=== PATIENT | female | born 1940 | race Caucasian/White ===

== ENCOUNTER 2017-11-28 12:44 | Inpatient (IN) | payer OTHER ==
[~2017-11-28] VITALS: Ht 162.6 cm; Wt 77.1 kg
[~2017-11-28 12:44] MED LIST: ADVAIR 100-501 EACH IH; CARAFATE1 GM PO; CEFTIN PO; CEFUROXIME250 MG PO; FAMOTIDINE20 MG PO; FLAGYL500 MG PO; KEFLEX500 MG PO; LEVAQUIN500 MG PO; LISINOPRIL40 MG PO; NORVASC10 MG PO; PLAVIX75 MG PO; PROMETHAZINE HC25 M1 PO; REGLAN10 MG PO; TYLENOL WITH C1 EACH PO; XARELTO10 MG PO
[2017-11-28] MEDS ORDERED: SODIUM CHLORIDE 0.9% 500ML 500 ML IV STA (13:09)
[2017-11-28 13:58] LABS: BASOPHILS # (AUTO) 0.1 (0.0-0.1); BASOPHILS % 0.4 % (0.0-1.0); BILIRUBIN,URINE NEGATIVE (NEGATIVE); CLARITY,URINE CLEAR (CLEAR); COLOR,URINE YELLOW (YELLOW); EOSINOPHILS # (AUTO) 0.2 (0.0-0.4); EOSINOPHILS % 1.4 % (0.0-6.0); HEMATOCRIT 40.3 % (34.2-44.1); HEMOGLOBIN 12.8 g/dL (12.0-16.0); KETONES,URINE NEGATIVE (NEGATIVE); LEUKOCYTE ESTERASE ,URINE NEGATIVE (NEGATIVE); LYMPHOCYTES # (AUTO) 2.8 (1.0-3.2); LYMPHOCYTES % 20.6 % (18.0-39.1); MEAN CORPUSCULAR HEMOGLOBIN 29.2 pg (28-32); MEAN CORPUSCULAR HGB CONC 31.8 g/dL (31-35); MEAN CORPUSCULAR VOLUME 91.8 fL (81-99); MONOCYTES # (AUTO) 1.1 (0.2-0.8); MONOCYTES % 7.8 % (4.4-11.3); NEUTROPHILS # (AUTO) 9.5 (2.1-6.9); NEUTROPHILS % 69.4 % (38.7-80.0); NITRITE,URINE NEGATIVE (NEGATIVE); PLATELET COUNT 548 x10e3/uL (140-360); PROTEIN,URINE DIPSTICK NEGATIVE (NEGATIVE); RED BLOOD COUNT 4.39 x10e6/uL (3.6-5.1); RED CELL DISTRIBUTION WIDTH 13.2 % (11.7-14.4); URINE UROBILINOGEN 0.2 mg/dL (0.2 - 1)
[2017-11-28 14:09] LABS: INR 0.81; PROTHROMBIN TIME 11.6 seconds (11.9-14.5)
[2017-11-28 14:10] LABS: PARTIAL THROMBOPLASTIN TIME 32.1 seconds (23.8-35.5)
[2017-11-28 14:19] LABS: ALANINE AMINOTRANSFERASE 19 IU/L (0-55); ALBUMIN 3.4 g/dL (3.5-5.0); ALBUMIN/GLOBULIN RATIO 0.7 (0.8-2.0); ALKALINE PHOSPHATASE 172 IU/L (40-150); ANION GAP 17.1 mmol/L (8-16); BLOOD UREA NITROGEN 19 mg/dL (7-26); BUN/CREATININE RATIO 22 (6-25); CALCIUM 9.1 mg/dL (8.4-10.2); CARBON DIOXIDE 26 mmol/L (22-29); CHLORIDE 100 mmol/L (98-107); CREATINE KINASE 72 IU/L (29-168); CREATININE, SERUM 0.86 mg/dL (0.57-1.11); EST GLOMERULAR FILTRATION RATE > 60 ML/MIN (60-); GLUCOSE 109 mg/dL (74-118); LIPASE 18 U/L (8-78); MAGNESIUM 2.2 MG/DL (1.3-2.1); POTASSIUM 4.1 mmol/L (3.5-5.1); SODIUM 139 mmol/L (136-145)
[2017-11-28 14:25] LABS: TROPONIN I 0.009 ng/mL (0-0.300)
[2017-11-28] MEDS ORDERED: ONDANSETRON HCL INJ 2 MG/ML VIAL IV STA (14:26)
[2017-11-28] MEDS ORDERED: MORPHINE SULFATE 4 MG/ML SYR IV STA (14:26)
[2017-11-28] MEDS ORDERED: MORPHINE SULFATE 5 MG/ML VIAL IV ONE (14:30)
[2017-11-28] MEDS ORDERED: ONDANSETRON HCL INJ 2 MG/ML VIAL IV PRN (15:45)
[2017-11-28] MEDS ORDERED: SODIUM CHLORIDE FLUSH 10 ML SYR INJ PRN (15:45)
--- NOTE | 2017-11-28 16:47 | Diagnostic Imaging Report ---
PROCEDURE: CT scan of the chest WITH intravenous contrast, using pulmonary angiogram protocol. TECHNIQUE: The chest was scanned utilizing a multidetector helical scanner from the lung apex through the level of the adrenal glands after the IV administration of 62cc of Isovue 370. Coronal and sagittal multiplanar reformations were obtained. Pulmonary angiogram protocol was performed. COMPARISON: None. INDICATIONS: SHORTNESS OF BREATH, CHEST TIGHTNESS. History of left TKA FINDINGS: Lines/tubes: None. Lungs and Airways: No pulmonary emboli. Bronchial wall thickening in both lower lobes. Platelet atelectasis in the left lower lobe. Dependent atelectasis in both lower lobes. Pleura: The pleural spaces are clear. Heart and mediastinum: The thyroid gland is normal. No significant mediastinal, hilar or axillary lymphadenopathy is seen. The heart and pericardium are within normal limits. Main pulmonary artery measures 2.6 cm. Ascending aorta measures 3.2 cm. Soft tissues: Normal. Abdomen: Gallbladder is distended measuring 5.3 x 8.9 cm. Common bile duct is distended up to 1.6 cm. Distal common bile duct is not included on this exam. Multiple hypodensities in the liver. 1.8 cm in segment 7/8 (series 2 image 84). Bones: The visualized bony thorax is within normal limits. IMPRESSION: 1. No pulmonary emboli. 2. Bilateral lobe bronchial wall thickening and atelectasis, left greater than right. This may represent superimposed infection, especially aspiration. 3. Gallbladder hydrops with distended common bile duct. Common bile duct stone or pancreatic head mass cannot be excluded. Recommend CT abdomen pelvis and/or MR abdomen without and with contrast pancreas mass protocol for further evaluation. Dictated by: Dax Blevins M.D. on 11/28/2017 at 16:56 Electronically approved by: Dax Blevins M.D. on 11/28/2017 at 16:56
[2017-11-28] MEDS ORDERED: HYDROCODONE/APAP 5MG-325MG TAB PO PRN (17:00)
--- NOTE | 2017-11-28 17:20 | Diagnostic Imaging Report ---
PROCEDURE: A single AP view of the chest. COMPARISON: Chest x-ray 09/15/2017. INDICATIONS: TIGHTNESS IN CHEST FINDINGS: Lines/tubes: None. Lungs: The lungs are well inflated. Left basilar atelectasis. Lungs are otherwise clear.. There is no evidence of pneumonia or pulmonary edema. Pleura: There is no pleural effusion or pneumothorax. Heart and mediastinum: The heart and the mediastinum are unremarkable. Bones: No acute bony abnormality. IMPRESSION: Left basilar atelectasis. Lungs are otherwise clear. Dictated by: Dax Blevins M.D. on 11/28/2017 at 17:29 Electronically approved by: Dax Blevins M.D. on 11/28/2017 at 17:29
[2017-11-28] MEDS: LEVOFLOXACIN 750MG/D5W 150ML 150 ML IV SCH ×2 (17:45→23:58)
[2017-11-28] MEDS ORDERED: SODIUM CHLORIDE 0.9% 50ML 50 ML ONE (18:24)
[2017-11-28] MEDS ORDERED: IOPAMIDOL 370 MG/ML 200 ML INFUS..BTL INJ ONE (18:24)
[2017-11-28 20:30] VITALS: BP 140/60
[2017-11-28 20:58] VITALS: BP 140/60
[2017-11-28] MEDS: MORPHINE SULFATE 5 MG/ML VIAL IV PRN (22:04)
[2017-11-28 22:26] LABS: CREATINE KINASE MB 1.1 ng/mL (0.00-5.00); TROPONIN I 0.008 ng/mL (0-0.300)
[2017-11-28] MEDS ORDERED: areds PO (23:39)
[2017-11-28] MEDS ORDERED: OXYCODONE-ACET1 EAC1 PO (23:39)
[2017-11-28] MEDS ORDERED: MONTELUKAST SOD10 MG PO (23:39)
[2017-11-28] MEDS ORDERED: HYDROCHLOROTHIA25 MG PO (23:39)
[2017-11-29] VITALS (9 sets, daily range): BP systolic 122–140; BP diastolic 56–88
[2017-11-29] MEDS ORDERED: ALBUTEROL/IPRATROPIUM 3 ML NEB NEB ONE (01:15)
[2017-11-29] MEDS ORDERED: ALBUTEROL/IPRATROPIUM 3 ML NEB NEB PRN (01:15)
[2017-11-29] MEDS ORDERED: OXYCODONE/ACETAMINOPHEN 5-325 1 EACH TABLET PO PRN (03:00)
[2017-11-29] MEDS: MORPHINE SULFATE 5 MG/ML VIAL IV PRN ×3 (05:28→21:57)
[2017-11-29 06:32] LABS: BASOPHILS % 0.2 % (0.0-1.0); EOSINOPHILS # (AUTO) 0.2 (0.0-0.4); EOSINOPHILS % 1.8 % (0.0-6.0); HEMATOCRIT 34.3 % (34.2-44.1); HEMOGLOBIN 10.9 g/dL (12.0-16.0); LYMPHOCYTES # (AUTO) 2.1 (1.0-3.2); LYMPHOCYTES % 17.5 % (18.0-39.1); MEAN CORPUSCULAR HEMOGLOBIN 29.5 pg (28-32); MEAN CORPUSCULAR HGB CONC 31.8 g/dL (31-35); MONOCYTES # (AUTO) 1.1 (0.2-0.8); MONOCYTES % 8.8 % (4.4-11.3); NEUTROPHILS # (AUTO) 8.7 (2.1-6.9); NEUTROPHILS % 71.3 % (38.7-80.0); PLATELET COUNT 509 x10e3/uL (140-360); RED BLOOD COUNT 3.69 x10e6/uL (3.6-5.1); RED CELL DISTRIBUTION WIDTH 13.2 % (11.7-14.4)
[2017-11-29 07:03] LABS: ALBUMIN 2.6 g/dL (3.5-5.0); ALBUMIN/GLOBULIN RATIO 0.7 (0.8-2.0); CALCIUM 8.9 mg/dL (8.4-10.2); CREATININE, SERUM 0.92 mg/dL (0.57-1.11)
[2017-11-29] MEDS ORDERED: FAMOTIDINE 20 MG TAB PO SCH (07:30)
[2017-11-29 07:53] LABS: CREATINE KINASE MB 0.7 ng/mL (0.00-5.00); TROPONIN I 0.01 ng/mL (0-0.300)
[2017-11-29] MEDS: HOME MEDICATION--PATIENTS OWN PO SCH ×2 (08:00→16:16)
[2017-11-29] MEDS ORDERED: AREDS PO SCH (08:00)
[2017-11-29] MEDS ORDERED: HYDROCHLOROTHIAZIDE 25 MG TAB PO SCH (09:00)
[2017-11-29] MEDS ORDERED: CLOPIDOGREL BISULFATE 75 MG TAB PO SCH (09:00)
[2017-11-29] MEDS ORDERED: AMLODIPINE BESYLATE 10 MG TAB PO SCH (09:00)
--- NOTE | 2017-11-29 09:46 | History and Physical ---
CHIEF COMPLAINT: Chest pain, increasing shortness of breath, nausea, vomiting, right-sided chest and midepigastric pain as well. HISTORY: Patient is a 77-year-old female recently had her left knee replacement approximately 2-3 weeks ago. Patient came in complaining of increasing shortness of breath, chest pain, more atypical. The patient at baseline takes blood pressure medication and also pain medication for her postoperative care. Patient came in and the patient had multiple imaging done. She had a chest CT done yesterday afternoon showing bilateral lower bronchial wall thickening and atelectasis with left greater than the right. This may represent superimposed infection. There is no pulmonary embolism. The patient also has gallbladder hydrops with distended common bile duct, common bile duct stone of pancreatic head may not be excluded. Recommend CT of the abdomen and pelvis or MRI of the abdomen. The patient, however, does want to do an MRI at this time. PAST MEDICAL HISTORY: Recent left knee replacement, hypertension, chronic obstructive pulmonary disease, history of asthma, osteoarthritis, reflux. PAST SURGICAL HISTORY: Left knee surgery, knee prosthesis. SOCIAL HISTORY: Patient does not smoke or use alcohol. No regular drugs. ALLERGIES: ASPIRIN AND TRAMADOL. HOME MEDICATIONS: Norvasc, Plavix, Pepcid, Advair, hydrochlorothiazide, Singulair, oxycodone. REVIEW OF SYSTEMS: As mentioned above. Epigastric pain, nausea. No vomiting now. Increasing shortness of breath. PHYSICAL EXAMINATION VITAL SIGNS: Temperature is 97, blood pressure 140/63, pulse rate 93, respirations 22. GENERAL: The patient is not in acute distress. HEENT: Normocephalic and atraumatic. Pupils reactive and anicteric. NECK: Supple grossly. No gross JVD. PULMONARY: Bilateral diminished breath sounds at the bases with coarses. CARDIOVASCULAR: S1 and S2. Regular rate and rhythm. ABDOMEN: Soft. Positive bowel sounds. Tenderness in the right upper and midepigastric area. No rebound or guarding. EXTREMITIES: No gross cyanosis or edema. Post left knee replacement. NEUROLOGIC: No focal deficit. LABORATORY: Sodium is 139, potassium 4.1, chloride 100, bicarb 26, BUN 19, creatinine 0.8, glucose 109. WBC is 13.6, hemoglobin 12.8, hematocrit 40.3, and platelets is 548,000. IMAGING: The chest CT showed possible aspiration pneumonia and gallbladder hydrops with distended common bile duct. IMPRESSION 1. Gallbladder hydrops with distended common bile duct: Etiology could be including acute cholecystitis with atypical pain. 2. Possible aspiration pneumonia. 3. Chest pain. PLAN: The patient was seen by Dr. Novoa. May need stress test. The patient may need gallbladder surgery. In the meantime, however, will continue with treatment for her pneumonia with antibiotics. Once the patient is stable, she may need gallbladder surgery. Will put a consult with Dr. Vinayak Feliz for the possible gallbladder surgery, and also consultation with Dr. Delvin Romero for possible ERCP. Will continue to treat this patient at this time. Job#: [id number] BILL
[2017-11-29] MEDS: FAMOTIDINE 20 MG/2 ML VIAL IV SCH ×2 (10:30→16:16)
[2017-11-29] MEDS: SODIUM CHLORIDE 0.45% 1,000 ML IV SCH ×2 (10:30→21:57)
[2017-11-29] MEDS: PIPER-TAZ 3.375 GM 50 ML IV SCH ×4 (10:40→21:56)
--- NOTE | 2017-11-29 11:50 | Consultation ---
DATE OF CONSULTATION: November 28, 2017 REASON FOR CONSULTATION: Chest pain. CONSULTING PHYSICIAN: Dr. Diego Pradhan. HPI: This is a 77-year-old female that presented with chest tightness. According to the patient, yesterday she started having chest tightness at the center of her chest accompanied with shortness of breath that comes and go, that she decided to come into the ER for evaluation. She described the chest pain as a heavy tightness on a scale of 5/10 with no radiation. She has a history of asthma, hypertension, and DVT in the past. She denies any palpitation, any diaphoresis, any headache, any nausea or vomiting. Troponin was negative times 2. EKG showed normal sinus rhythm with no ST abnormalities. PAST MEDICAL HISTORY: Osteoarthritis, asthma, peripheral neuropathy, peptic ulcer disease, DVT in 2008, and stroke. SURGICAL HISTORY: Total knee replacement. FAMILY HISTORY: Positive for hypertension. SOCIAL HISTORY: No smoking, no drinking. MEDICATIONS: See med list. ALLERGIES: SHE IS ALLERGIC TO TRAMADOL AND ASPIRIN. REVIEW OF SYSTEMS: Negative except those mentioned above. PHYSICAL EXAMINATION VITAL SIGNS: Temperature 97, heart rate 86, blood pressure 133/88, respirations 16, and oxygen saturation 99% on 2 liters nasal cannula. GENERAL: She is alert, awake, and oriented times 3. HEENT: Mucous membrane moist. NECK: Supple. LUNGS: Bilaterally clear to auscultation. CARDIOVASCULAR: S1, S2 present. ABDOMEN: Soft. NEUROLOGIC: Intact. EXTREMITIES: With no edema. LABORATORY DATA: Sodium 139, potassium 4.0, chloride 100, CO2 of 30, BUN 15, creatinine 0.92, and glucose 97. White blood cell 12.1, hemoglobin 10.9, hematocrit 34.3, platelet 509. PT 11.6, PTT 32.1, and INR 0.81. IMPRESSION 1. Chest pain. 2. Hypertension. 3. History of deep venous thrombosis. 4. History of cerebrovascular accident. ASSESSMENT AND PLAN: Due to the chest tightness, we will go ahead and get a Lexiscan Myoview to rule out any occlusion. We will get serial cardiac enzyme. We will get an echo to asses LV and the valve function. We will continue home blood pressure medication. We will keep her n.p.o. Further cardiac workup pending clinical course. Thank you for this consultation. Dictated by: Madelyn Ryan NP Job#: [id number] SAK
[2017-11-29] MEDS ORDERED: SODIUM CHLORIDE 0.9% 1000ML 1,000 ML ONE (12:12)
[2017-11-29] MEDS ORDERED: REGADENOSON 0.4 MG/5 ML SYR IV ONE (12:13)
[2017-11-29] MEDS ORDERED: SODIUM CHLORIDE 0.9% 250ML 250 ML ONE (12:40)
[2017-11-29] MEDS ORDERED: IOPAMIDOL 370 MG/ML 200 ML INFUS..BTL INJ ONE (15:13)
[2017-11-29] MEDS ORDERED: SODIUM CHLORIDE 0.9% 50ML 50 ML ONE ×2 (15:13)
--- NOTE | 2017-11-29 15:18 | Diagnostic Imaging Report ---
PROCEDURE: CT ABDOMEN WITH AND WITHOUT CONTRAST TECHNIQUE: The abdomen was scanned utilizing a multidetector helical scanner from the diaphragm to the iliac crest before and after the IV administration of 100 cc of Isovue 370 and the oral administration of water. Precontrast, arterial, venous and delayed phases were obtained as part of a pancreas mass protocol. Coronal and sagittal multiplanar reformations were obtained. COMPARISON: Patients [facility], CT, CT CHEST W, 11/28/2017, 16:07. INDICATIONS: ABNORMAL CT RESULTS, dilated common bile duct, and gallbladder FINDINGS: LOWER THORAX: Bilateral lower lobe linear opacities, left greater than right, and associated mild bronchiectatic changes consistent with atelectasis/scarring HEPATOBILIARY: Mild hepatomegaly, measuring 16 cm in the right mid clavicular line. Normal contour. Several hypodense, nonenhancing, fluid density lesions consistent with simple cysts are noted in the liver, as follows: * 1.5 x 1.0 cm lesion in hepatic segment VIII at the dome (series 3, image 6). * 1.0 x 0.9 cm lesion in hepatic segment SARKIS (series 5, image 97). * 1.5 x 1.5 cm lesion in hepatic segment V/ (series 5, image 107). * Several other subcentimeter lesions are scattered throughout both hepatic lobes, which are too small to characterize, but likely represent small cysts. No suspicious enhancing lesions. Moderate intrahepatic biliary ductal dilation, and marked dilation of the common bile duct, which measures approximately 1.9 cm at the yi hepatis and 9 mm at the pancreatic head (coronal venous images 36 and 34). There is smooth luminal contour, without mucosal irregularities. Normal tapering to the ampulla, without focal masses. No intraluminal radiopaque filling defects. Gallbladder is hydropic, measuring approximately 11.2 x 5.9 x 6.1 cm. No wall thickening. No intraluminal radiopaque stones or sludge. No pericholecystic fluid. SPLEEN: No splenomegaly. PANCREAS: Moderate pancreatic atrophy. No definite pancreatic head mass is identified. The pancreatic duct is normal in caliber, without dilation. ADRENALS: No adrenal nodules. KIDNEYS: No hydronephrosis, stones, or solid mass lesions. PERITONEUM / RETROPERITONEUM: No free air or fluid. LYMPH NODES: No lymphadenopathy. VESSELS: Celiac trunk, superior and inferior mesenteric, and bilateral renal arteries are patent. Portal, superior mesenteric, and splenic veins are patent. GI TRACT: Persistent moderate thickening of the stomach antrum (for example, coronal venous image 30, and sagittal venous image 68). Rest of the visualized bowel shows no wall thickening, dilation, or obstruction. No intraluminal masses. No pericolonic inflammatory changes. BONES AND SOFT TISSUES: No aggressive lytic or sclerotic lesion. Degenerative changes in the lower thoracic and lumbosacral spine.. IMPRESSION: 1. Moderate intrahepatic biliary ductal dilation and marked dilation of the common bile duct, with hydropic gallbladder. No radiopaque gallstones or common bile duct stones. No pancreatic head mass or ductal dilation is identified. No discrete ampullary lesion is noted. Recommend MRCP to exclude non-radiopaque choledocholith. A stricture at the ampullary portion of the CBD is less likely. 2. Persistent moderate thickening of the stomach antrum. This may reflect inflammatory or infectious antritis, however, underlying gastric neoplasm is a consideration. Direct visualization with endoscopy would be helpful for further evaluation. 3. Mild splenomegaly, with multiple simple hepatic cysts. Bird Ochoa M.D. Dictated by: Bird Ochoa M.D. on 11/29/2017 at 15:27 Electronically approved by: Bird Ochoa M.D. on 11/29/2017 at 15:27
[2017-11-29] MEDS: OCUVITE PRESERVISION TABLET PO SCH (17:00)
--- NOTE | 2017-11-29 17:36 | Consultation ---
DATE OF CONSULTATION: November 29, 2017 CHIEF COMPLAINT: Chest tightness. HISTORY OF PRESENT ILLNESS: The patient is a 77-year-old female 3 weeks status post knee replacement surgery complaining of chest tightness with mild shortness of breath. The patient has a history of asthma and DVT in the past. She denies abdominal pain or fatty food intolerance or vomiting. PAST MEDICAL HISTORY: Positive for asthma, arthritis, peptic ulcer disease, history of DVT and stroke, and hypertension. SURGICAL HISTORY: Positive for left knee replacement surgery 3 weeks ago. SOCIAL HABITS: Patient has no history of smoking or alcohol abuse. ALLERGIES: TRAMADOL AND ASPIRIN. REVIEW OF SYSTEMS: No current chest pain or shortness of breath. No nausea or vomiting. PHYSICAL EXAMINATION VITAL SIGNS: Stable. Afebrile. GENERAL: She is awake, alert, in no apparent discomfort. HEENT: Sclerae are anicteric. NECK: Supple. LUNGS: No wheezes. HEART: Regular rate and rhythm. No murmur. ABDOMEN: Soft. No focal tenderness or mass. EXTREMITIES: No cyanosis or edema. LABS: White cell count is 12, hemoglobin of 10.9. Creatinine of 0.9. Total bilirubin 0.3 with alkaline phosphatase of [address] of the abdomen showed dilated common bile duct and intrahepatic ducts with no stone visualized. Enlarged gallbladder without gallstone. ASSESSMENT: Dilated intrahepatic and extrahepatic biliary ducts with no obvious evidence of choledocholithiasis. Patient has no GI symptoms per se at the present time. PLAN: MRCP is in progress. Will follow the patient with you closely. Thank you for the consultation. Job#: [id number]
[2017-11-29] MEDS: MONTELUKAST SODIUM 10 MG TAB PO SCH (21:05)
[2017-11-29] MEDS: SALMETEROL/FLUTICASONE 100/50 INH PRN (22:02)
[2017-11-30] MEDS: MORPHINE SULFATE 5 MG/ML VIAL IV PRN ×2 (04:10→21:38)
[2017-11-30] MEDS: FAMOTIDINE 20 MG/2 ML VIAL IV SCH ×2 (07:58→16:15)
[2017-11-30] MEDS: OCUVITE PRESERVISION TABLET PO SCH ×2 (07:58→16:15)
[2017-11-30 08:00] VITALS: BP 142/63
[2017-11-30] MEDS ORDERED: GADOBENATE DIMEGLUMINE 0 ML IV ONE (09:17)
[2017-11-30 10:14] VITALS: BP 122/56
[2017-11-30] MEDS: SALMETEROL/FLUTICASONE 100/50 INH PRN (11:00)
--- NOTE | 2017-11-30 11:30 | Diagnostic Imaging Report ---
EXAMINATION: MRCP without contrast. TECHNIQUE: Axial T2 FR FSE, coronal SSFSE images of the abdomen were performed. No intravenous gadolinium was administered. Heavily T2-weighted MRCP images were performed, including thick and thin slab MRCP ASSETT, and 3-D reconstructions. HISTORY:Dilated CBD, hydropic gallbladder, suspect choledocholithiasis COMPARISON: CT abdomen and pelvis 09/29/2018 FINDINGS: LOWER THORAX: Bibasilar atelectatic changes.. LIVER: The hepatic contour is normal.. Scattered T2 hyperintense lesions consistent with previously visualized simple cysts, with the largest in the right hepatic lobe measuring approximately 1.5 x 1.5 cm (series 4, image 18). BILIARY: Moderate intrahepatic biliary ductal dilation, more prominent in the central aspect (for example series 3, 17). There is moderate to marked dilation of the common bile duct, which measures 1.5 cm at the yi hepatis and 9-10 mm at the pancreatic head. No filling defects or extrinsic compressions are identified. There is abrupt change in caliber in the ampullary portion of the distal CBD (for example series 6, images 5 and 4), which may reflect a small stricture. No focal mass is noted. .Gallbladder is hydropic. No wall thickening, filling defects or pericholecystic fluid.. PANCREAS: No mass or ductal dilatation. SPLEEN: No splenomegaly. ADRENALS: No nodules. KIDNEYS: No hydronephrosis or solid enhancing mass in the imaged portion of the kidneys. PERITONEUM / RETROPERITONEUM: No upper abdominal free fluid. GI TRACT: The visualized bowel shows no dilation or obstruction. LYMPH NODES: No upper abdominal lymphadenopathy. VESSELS: . Normal flow voids are identified.. . BONES AND SOFT TISSUES: No abnormal bone marrow signal. No soft tissue abnormalities. IMPRESSION: 1. Findings in the ampullary portion of the distal CBD may reflect a small stricture. No focal mass, cholelithiasis or choledocholithiasis is identified. ERCP is recommended for further evaluation. 2. Moderate intrahepatic biliary ductal dilatation, predominantly in the central aspect, with moderate to marked dilation of the common bile duct. Hydropic gallbladder. Signed by: Dr. Bird Ochoa M.D. on 11/30/2017 11:26 AM
[2017-11-30 12:00] VITALS: BP 142/64
[2017-11-30] MEDS: SODIUM CHLORIDE 0.45% 1,000 ML IV SCH (12:30)
[2017-11-30] MEDS: PIPER-TAZ 3.375 GM 50 ML IV SCH ×2 (13:02→22:28)
[2017-11-30 16:00] VITALS: BP 129/59
[2017-11-30] MEDS ORDERED: BISACODYL 5 MG TAB EC PO PRN (19:15)
[2017-11-30] MEDS: ALBUTEROL/IPRATROPIUM 3 ML NEB NEB SCH (19:30)
[2017-11-30] MEDS ORDERED: AZITHROMYCIN 500MG/NS 250 ML 250 ML IV SCH (19:30)
[2017-11-30] MEDS: DOCUSATE SODIUM 100 MG CAP PO SCH (19:50)
[2017-11-30] MEDS: MONTELUKAST SODIUM 10 MG TAB PO SCH (20:35)
--- NOTE | 2017-11-30 20:44 | Consultation ---
DATE OF CONSULTATION: November 30, 2017 This is a 77-year-old very nice lady who presented to the hospital yesterday because of problems with some shortness of breath, some nausea and some abdominal pain. The patient denies any problems with fever or jaundice along with this problem. Her workup revealed that she has dilated bile duct with hydropic gallbladder. However, there are no signs of any gallstones or choledocholithiasis identified. Her liver enzymes, however, are normal. She denies any weight loss or anything else at this point. Her other medical problems are significant for history of recent left knee replacement, history of hypertension, history of COPD, history of asthma. ALLERGIES: ASPIRIN AND TRAMADOL. SOCIAL HISTORY: No alcohol use. FAMILY HISTORY: Noncontributory. CURRENT MEDICATIONS: Pepcid, Zosyn, and pain medication. REVIEW OF SYSTEMS: Denies any chest pain. Denies any shortness of breath. Denies any dysphagia or odynophagia. Denies any dysuria or hematuria or any kind of syncopal episode. PHYSICAL EXAMINATION GENERAL: The patient is awake, alert, appears to be stable and not in any acute distress. VITAL SIGNS: Afebrile with stable vital signs. HEENT: Normocephalic, atraumatic. Sclerae anicteric. NECK: Supple. HEART: Sounds regular. LUNGS: Clear. ABDOMEN: Soft. Nondistended at this point and is nontender. EXTREMITIES: No edema or clubbing. LABORATORY DATA: Significant for liver enzymes normal and CAT scan shows dilated bile duct and alto thickening of the stomach. MRCP showed dilated bile duct, but there are no signs of any gallstones or choledocholithiasis. IMPRESSION 1. Abdominal pain, appears to be resolved at this point. The patient also had some chest pain on admission. 2. 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 RECOMMENDATIONS: Continue current care at this point. The patient and the family would prefer to have any evaluation as an outpatient. Since the patient is not jaundiced and currently is asymptomatic, I think it is acceptable to do so. If she is ready to be discharged, the patient can be discharged to follow up with me as an outpatient. Job#: [id number] cc:JANE PETERS MD cc:ARIS TOURE MD
[2017-11-30] MEDS ORDERED: POLYETHYLENE GLYCOL 3350 17 GM PACK PO SCH (21:00)
[2017-11-30] MEDS: SALMETEROL/FLUTICASONE 100/50 INH SCH (21:30)
[2017-12-01] MEDS: ALBUTEROL/IPRATROPIUM 3 ML NEB NEB SCH ×3 (01:00→13:00)
[2017-12-01] MEDS: SODIUM CHLORIDE 0.45% 1,000 ML IV SCH ×2 (01:15→13:52)
[2017-12-01 01:37] VITALS: BP 129/59
[2017-12-01] MEDS: MORPHINE SULFATE 5 MG/ML VIAL IV PRN (02:57)
[2017-12-01] MEDS: PIPER-TAZ 3.375 GM 50 ML IV SCH ×2 (06:20→13:52)
[2017-12-01] MEDS: SALMETEROL/FLUTICASONE 100/50 INH SCH (07:00)
[2017-12-01 07:04] LABS: ALANINE AMINOTRANSFERASE 14 IU/L (0-55); ALBUMIN 2.5 g/dL (3.5-5.0); ALBUMIN/GLOBULIN RATIO 0.7 (0.8-2.0); ALKALINE PHOSPHATASE 140 IU/L (40-150); ANION GAP 11.6 mmol/L (8-16); BLOOD UREA NITROGEN 14 mg/dL (7-26); BUN/CREATININE RATIO 16 (6-25); CALCIUM 8.1 mg/dL (8.4-10.2); CARBON DIOXIDE 29 mmol/L (22-29); CHLORIDE 103 mmol/L (98-107); CREATININE, SERUM 0.85 mg/dL (0.57-1.11); EST GLOMERULAR FILTRATION RATE > 60 ML/MIN (60-); GLUCOSE 97 mg/dL (74-118); MAGNESIUM 1.7 MG/DL (1.3-2.1); POTASSIUM 3.6 mmol/L (3.5-5.1); SODIUM 140 mmol/L (136-145)
[2017-12-01 07:25] LABS: FREE T4 (FREE THYROXINE) 1.21 ng/dL (0.8-1.8); THYROID STIMULATING HORMONE 2.503 uIU/mL (0.350-4.940)
[2017-12-01 07:59] VITALS: BP 109/64
[2017-12-01] MEDS: DOCUSATE SODIUM 100 MG CAP PO SCH (08:38)
[2017-12-01] MEDS: OCUVITE PRESERVISION TABLET PO SCH (08:38)
[2017-12-01] MEDS: FAMOTIDINE 20 MG/2 ML VIAL IV SCH (08:38)
[2017-12-01] MEDS ORDERED: OXYCODONE/ACETAMINOPHEN 5-325 1 EACH TABLET PO PRN (09:00)
[2017-12-01] MEDS ORDERED: ZITHROMAX500 MG PO (10:00)
[2017-12-01] MEDS ORDERED: TYLENOL # 31 EA PEG (10:37)
[2017-12-01 12:12] VITALS: BP 136/60
--- NOTE | 2017-12-01 12:24 | Cardiology Report ---
DATE OF STUDY: November 29, 2017 LEXISCAN STRESS TEST DESCRIPTION OF PROCEDURE: After informed consent, patient was brought to the stress lab. She was given 10.6 mCi of technetium 99 Myoview intravenously, and myocardial perfusion SPECT images were obtained in the horizontal long-axis, short-axis and vertical long-axis views. Subsequently patient was given 0.4 mg Lexiscan over 10 seconds. Patient was given 32.6 mCi of technetium 99 Myoview, and myocardial perfusion SPECT images were obtained in the horizontal long-axis, short-axis and vertical long-axis views. Gating images were also obtained. The patient tolerated this procedure without any complications. REPORT: Baseline EKG shows sinus rhythm at 91 beats per minute, normal axis, normal intervals, nonspecific ST-T changes. PACs noted. PARAMETERS 1. Resting heart rate is 93 beats per minute. 2. Maximal heart rate is 112 beats per minute. 3. Resting blood pressure 123/54 mmHg. 4. Maximal blood pressure 130/56 mmHg. REASON FOR TERMINATION: Endpoint obtained. INTERPRETATION 1. Negative for chest pain. 2. Negative for arrhythmias. 3. Blood pressure response consistent with Lexiscan. 4. No significant ST-T changes seen during Lexiscan infusion compared to baseline. 5. Analysis of SPECT images reveals uniform radioisotope uptake in all segments of the myocardium without any significant perfusion defects. CONCLUSION 1. No evidence of significant ischemia or infarction on this study. 2. No wall motion abnormalities. 3. Overall ejection fraction is 83%. Job#: [id number] EV
[2017-12-01] MEDS ORDERED: FAMOTIDINE 20 MG TAB PO SCH (16:30)
--- NOTE | 2017-12-01 19:23 | Discharge Summary ---
ADMISSION DIAGNOSES 1. Gallbladder hydrops with distended common bile duct. 2. Possible aspiration pneumonia. 3. Chest pain. DISCHARGE DIAGNOSES 1. Gallbladder hydrops with distended common bile duct. 2. Possible aspiration pneumonia. 3. Chest pain. 4. Ruled out myocardial infarction. 5. Ruled out deep vein thrombosis in bilateral lower extremities. 6. Bronchopneumonia/bronchitis. HISTORY: Patient has a history of left knee replacement, hypertension, chronic obstructive pulmonary disease, asthma, OA, and reflux. HOSPITAL COURSE: A 77-year-old female had her left knee replaced about 2 to 3 weeks ago. She came in complaining of shortness of breath, chest pain more atypical. Patient came in and had multiple images done. CT of the chest showed bilateral lower bronchial wall thickening and atelectasis with left greater than right. This may represent superimposed infection. No PE. Patient has gallbladder hydrops with distended common bile duct. Stone of pancreatic head may not be excluded. Patient does not want to do an MRI. She refused. Stress test was done per Dr. Novoa due to the chest pain, which was negative, and she was cleared by Cardiology for discharge home with no new medicines. MRCP was done. It showed findings in the ampullary portion of the distal common bile duct may reflect a small stricture. No mass, cholelithiasis or choledocholithiasis is identified. Moderate intrahepatic biliary ductal dilatation, predominantly in the central aspect with moderate to marked dilation of the common bile duct, hydropic gallbladder. Per Surgery, patient does not require surgery since she is still tolerating food with very minimal discomfort. Blood cultures were negative. Urine culture was negative. Vital signs and labs stable. At discharge, sodium was 140, potassium 3.6, creatinine of 0.85. Patient was discharged home with 5 more days of Zithromax. Okay to discharge per GI, Cardiology and Surgery. Patient was discharged home with family. Physical therapy for her left knee replacement. Patient is to follow up with primary care in 1 to 2 weeks and follow up with Dr. Romero in 1 to 2 weeks as well. Dictated by: Iwona Walden NP JANE PETERS MD Job#: [id number] EV
== END 2017-12-01 15:07 | disposition home health service (06) | DRG 444 ==
LOC: ER 12:44 → ERHOLD 17:59 → IMCU 20:19 → OBSVTOIN 11-29 09:15 → MED/SURG2 11-29 22:57
PROVIDERS: ADMIT Internal Medicine; ATTEND Internal Medicine
DX: K82.1 Hydrops of gallbladder (principal); J69.0 Pneumonitis due to inhalation of food and vomit; K83.1 Obstruction of bile duct; J44.0 Chronic obstructive pulmonary disease with (acute) lower respiratory infection; J40 Bronchitis, not specified as acute or chronic; Z96.652 Presence of left artificial knee joint; J45.909 Unspecified asthma, uncomplicated; M19.90 Unspecified osteoarthritis, unspecified site; K82.8 Other specified diseases of gallbladder; I10 Essential (primary) hypertension; Z86.718 Personal history of other venous thrombosis and embolism; Z79.01 Long term (current) use of anticoagulants; Z86.73 Personal history of transient ischemic attack (TIA), and cerebral infarction without residual deficits; Z53.29 Procedure and treatment not carried out because of patient's decision for other reasons
CPT/HCPCS: 36415; 71010; 71260; 74170; 74181; 78452; 80053; 81001; 82550; 82553; 83690; 83735; 83880; 84439; 84443; 84484; 85025; 85610; 85730; 87040; 87086; 93005; 93017; 93306; 93970; 94640; 96361; 99284; A9502; G0378; J0456; J2270; J2405; J2543; J7030; J7040; J7050; Q9967

== ENCOUNTER 2018-02-14 16:57 | Inpatient (IN) | payer OTHER ==
[~2018-02-14] VITALS: Ht 162.6 cm; Wt 83.1 kg
[~2018-02-14 16:57] MED LIST changes: +HYDROCHLOROTHIA25 MG PO; +MONTELUKAST SOD10 MG PO; +OXYCODONE-ACET1 EAC1 PO; +TYLENOL # 31 EA PEG; +ZITHROMAX500 MG PO; +areds PO
[2018-02-14] MEDS ORDERED: ONDANSETRON HCL INJ 2 MG/ML VIAL IV STA (16:59)
--- OUTSIDE RECORDS SUMMARY | 2018-02-14 16:59 | XMS REPORT | Clinical Summary ---
Author Author GIDEON Ecelles CarsonSt[facility] HospitalRockaboxOuach[facility] CenterSmith[facility]New [facility] Address Unknown Phone Unavailable Care Team Providers Care Wood Engraver Name Role Phone PCP Unavailable Allergies Active Allergy Reactions Severity Noted Date Comments Aspirin Shortness Of Breath High 10/31/2017 Levofloxacin Itching 10/31/2017 Tramadol Itching 10/31/2017 Ondansetron Hcl (Pf) Itching 10/31/2017 Current Medications Prescription Sig. Disp. Refills Start End Date Status Date albuterol (PROVENTIL) 2.5 Take 2.5 mg by Active mg /3 mL (0.083 %) nebulization every 6 nebulizer solution (six) hours as needed for Wheezing. amLODIPine (NORVASC) 10 Take 10 mg by mouth Active MG tablet daily. fluticasone (FLONASE) 50 1 spray by Nasal route Active mcg/actuation nasal spray daily. fluticasone-salmeterol Inhale 1 puff by mouth Active (ADVAIR) 100-50 mcg/dose via inhaler every 12 diskus inhaler (twelve) hours. hydroCHLOROthiazide Take 25 mg by mouth Active (HYDRODIURIL) 25 MG daily. tablet montelukast (SINGULAIR) Take 10 mg by mouth Active 10 mg tablet nightly. multivitamin per tablet Take 1 tablet by mouth Active daily. clopidogrel (PLAVIX) 75 Take 75 mg by mouth 11/10/19 Discontin mg tablet daily. 18 ued methylPREDNISolone Take 4 mg by mouth 2 11/09/19 Discontin (MEDROL DOSEPACK) 4 mg (two) times daily follow 18 ued tablet package directions . acetaminophen-codeine Take 1 tablet by mouth 11/09/19 Discontin (TYLENOL #3) 300-30 mg every 4 (four) hours as 18 ued per tablet needed for Pain. HYDROcodone-acetaminophen Take 1 tablet by mouth 120 tablet 0 12/09/19 (NORCO 10-325) 10-325 mg every 4 (four) hours as 18 18 per tablet needed for Pain for up to 30 days. Max Daily Amount: 6 tablets rivaroxaban (XARELTO) 10 Take 1 tablet (10 mg 14 tablet 0 11/10/19 11/10/19 Discontin mg Tab tablet total) by mouth daily 18 18 ued with dinner for 14 days. methocarbamol (ROBAXIN) Take 1 tablet (500 mg 30 tablet 0 11/10/19 11/20/19 500 MG tablet total) by mouth 4 (four) 18 18 times daily for 10 days. rivaroxaban (XARELTO) 10 Take 1 tablet (10 mg 14 tablet 0 11/10/19 11/10/19 Discontin mg Tab tablet total) by mouth daily 18 18 ued with dinner for 14 days. rivaroxaban (XARELTO) 10 Take 1 tablet (10 mg 14 tablet 0 11/10/19 11/24/19 mg Tab tablet total) by mouth daily 18 18 with dinner for 14 days. Active Problems Problem Noted Date S/P knee replacement 11/09/2017 Osteoarthritis of left knee 11/08/2017 Left knee DJD 11/08/2017 Encounters Date Type Specialty Care Team Description 11/08/2017 [facility] General Internal Medicine Vinayak Herr, - Encounter 11/10/2017 11/08/2017 Procedure Pass 11/08/2017 Surgery Vinayak Herr, ARTHROPLASTY,KNEE UNILATERAL 10/31/2017 Hospital Pre-Admission Testing Vinayak Herr, Encounter 10/31/2017 Anesthesia Xin Sanchez MD Event 09/07/2017 Orders Only Iris Duarte PA after 02/13/2017 Social History Tobacco Use Types Packs/Day Years Used Date Never Smoker Smokeless Tobacco: Never Used Alcohol Use Drinks/Week oz/Week Comments No Sex Assigned at Date Recorded Not on file Last Filed Vital Signs Vital Sign Reading Time Taken Blood Pressure 127/60 11/10/2017 1:00 PM SENIOR DRAFTER Pulse 85 11/10/2017 1:00 PM SENIOR DRAFTER Temperature 37.2 C (98.9 F) 11/10/2017 1:00 PM SENIOR DRAFTER Respiratory Rate 18 11/10/2017 1:00 PM SENIOR DRAFTER Oxygen Saturation 96% 11/10/2017 11:05 AM SENIOR DRAFTER Inhaled Oxygen - - Concentration Weight 82.4 kg (181 lb 9.5 oz) 11/08/2017 9:00 AM SENIOR DRAFTER Height 162.6 cm (5' 4.02") 11/08/2017 9:00 AM SENIOR DRAFTER Body Mass Index 31.15 11/08/2017 9:00 AM SENIOR DRAFTER Plan of Treatment Not on file Implants Implanted Type Area Programming Internship Device Expiration Model / Identifier Date Serial / Lot Cement Bone Smplx Hv 6194-1-001 - Cement/Donald Left: Knee ROLANDA:ROLANDA 05/05/2019 6194-1-001 [id number] ler/Adhesi ORTHOP[employer] / Implanted: Qty: 2 on 11/08/2017 by ve / Vinayak Herr MD [id number] Peg Fem Distal Fixation 5575-X-000 Fracture/F Left: Knee ROLANDA: ROLANDA 05/02/2022 5575-X-000 - [id number] ixation SPINE / Implanted: Qty: 1 on 11/08/2017 by / Vinayak Herr MD [id number] Pattella Tri Symmetric 33x9mm Joints Left: Knee ROLANDA:ROLANDA 10/24 5550-L-339 5550-L-339 - [id number] ORTHOPAEDICS / Implanted: Qty: 1 on 11/08/2017 by / Vinayak Herr MD [id number] Comp Triathlon Ps Fem #4 X1 - Joints Left: Knee ROLANDA:ROLADNA 08/15 5515-F-401 [id number] ORTHOPAEDICS / Implanted: Qty: 1 on 11/08/2017 by / Vinayak Herr MD [id number] Baseplt Tri Ts 4 5521-B-400 - Joints Left: Knee ROLANDA:ROLANDA 06/14 5521-B-400 [id number] ORTHOPAEDICS / Implanted: Qty: 1 on 11/08/2017 by / Vinayak Herr MD [id number] Stem Cemented [id number] 5560-S-112 - Joints Left: Knee ROLANDA:ROLANDA 06/01/2022 5560-S-112 [id number] ORTHOPAEDICS / Implanted: Qty: 1 on 11/08/2017 by / Vinayak Herr MD [id number] Insrt Tibial #4 11mm 5537-G-411 - Joints Left: Knee ROLANDA:ROLANDA 06/21/2021 5537-G-411 [id number] ORTHOPAEDICS / Implanted: Qty: 1 on 11/08/2017 by / Vinayak Herr MD [id number] Procedures Procedure Name Priority Date/Time Associated Diagnosis Comments ARTHROPLASTY,KNEE 11/08/2017 Arthritis of left knee UNILATERAL 11:45 AM SENIOR DRAFTER Special Needs (SPINAL/EP IDURAL WITH ADDUCTOR CANAL BLOCK, ROLANDA TRIATHALON ) after 02/13/2017 Results * XR chest 1 view portable / bedside (11/10/2017 10:14 AM) Specimen Performing Laboratory GE RIS Narrative FINAL REPORT Chest one view Discussion: Patchy opacities right lower lung and left lung base are noted. Left hemidiaphragm is partially obscured. No gross effusion or pneumothorax. Heart size normal. IMPRESSIONS: Nonspecific bilateral lower lung opacities. Correlate clinically for infection. Signed: Ale Montoya MD Report Verified Date/Time:11/10/2017 11:17:44 Reading Location: [facility] Reading Room Procedure Note Interface, External Ris In - 11/10/2017 11:20 AM SENIOR DRAFTER FINAL REPORT Chest one view Discussion: Patchy opacities right lower lung and left lung base are noted. Left hemidiaphragm is partially obscured. No gross effusion or pneumothorax. Heart size normal. IMPRESSIONS: Nonspecific bilateral lower lung opacities. Correlate clinically for infection. Signed: Ale Montoya MD Report Verified Date/Time: 11/10/2017 11:17:44 Reading Location: [facility] Radiology Reading Room * Hemoglobin and hematocrit (11/10/2017 4:50 AM) Only the most recent of 2 results within the time period is included. Component Value Ref Range Hemoglobin 9.4 (L) 11.2 - 15.7 GM/DL Hematocrit 29.9 (L) 34.1 - 44.9 % Specimen Performing Laboratory Blood - Arm, Right [facility] [address] [place] [address] * Basic Metabolic Panel (11/10/2017 4:50 AM) Only the most recent of 2 results within the time period is included. Component Value Ref Range Sodium 135 (L) 136 - 145 meq/L Potassium 3.4 (L) 3.5 - 5.1 meq/L Chloride 105 98 - 107 meq/L CO2 24 22 - 29 meq/L BUN 19 7 - 21 mg/dL Creatinine 0.76 0.57 - 1.25 mg/dL Glucose 130 (H) 70 - 105 mg/dL Calcium 7.7 (L) 8.4 - 10.2 mg/dL EGFR 74Comment: ESTIMATED GFR IS NOT ACCURATE mL/min/1.73 sq m CREATININE CLEARANCE IN PREDICTING GLOMERULAR FILTRATION RATE. ESTIMATED GFR IS NOT APPLICABLE FOR DIALYSIS PATIENTS. Specimen Performing Laboratory Blood - Arm, [address] [address] * Tissue Exam (11/08/2017 1:02 PM) Component Value Ref Range Case Report Surgical Pathology Report Case: [id number] Authorizing Provider: Vinayak Herr, Collected: 11/08/2017 1302 MD Ordering Location: [facility] PERIOPERATIVE Received: 11/08/2017 1358 SERVICES Pathologist: Ky Miranda MD Specimen: Condyle,Left Knee DIAGNOSIS BONE, LEFT KNEE, ARTHROPLASTY: -OSTEOARTHRITIS AND CHRONIC SYNOVITIS Signing Pathologist Direct Phone Line: [phone] CPT Code(s) 91481 96173 CLINICAL HISTORY Left knee arthritis SPECIMEN SOURCE Left knee condyle GROSS DESCRIPTION The specimen is received in a fluidless container labeled with patient information and labeled "left knee condyle" and consists of multiple fragments of navarro-pink knee bone and soft tissue measuring 9 x 8 x 3 cm in aggregate. All bone bone fragments have distinct osteophyte formation with eburnation and pitting. Section code: A1 and A2, bone submitted for decalcification; A3, soft tissue and bone submitted for decalcification. CG/pl MICROSCOPIC DESCRIPTION The sections show reduplication of the tidemark with eburnation and osteophyte formation. The synovial tissue reveals subsynovial edema with chronic inflammation. Specimen Performing Laboratory Tissue - Condyle,Left [facility] Knee [address] [place] [address] * ANESTHESIA PERIPHERAL BLOCK (11/08/2017 11:22 AM) Narrative Jeison Vásquez MD 11/08/2017 11:22 AM Peripheral Block Patient location during procedure: pre-op Start time: 11/08/2017 10:36 AM End time: 11/08/2017 10:45 AM Reason for block: procedure for pain, at surgeon's request and post-op pain management Staffing Anesthesiologist: JEISON VÁSQUEZ Resident/BATCH TANK CONTROLLER: ARIEL FRANCIS Performed by: anesthesiologist and resident/BATCH TANK CONTROLLER Preanesthetic Checklist Completed: patient identified, site marked, surgical consent, pre-op evaluation, timeout performed, IV checked, risks and benefits discussed and monitors and equipment checked Peripheral Block Patient position: supine Prep: ChloraPrep Patient monitoring: heart rate, cardiac cath lab manager and continuous pulse ox Block type: Adductor canal Laterality: left Injection technique: catheter Procedures: ultrasound guided and landmark technique Local infiltration: ropivicaine Infiltration strength: 0.5 % Dose: 25 mL Needle Needle type: Tuohy Needle gauge: 17 G Needle length: 100 mm Catheter type: open end Catheter size: 19 G Test dose: negative Assessment Injection assessment: negative aspiration for heme, no paresthesia on injection, incremental injection and local visualized surrounding nerve on ultrasound Paresthesia pain: none Heart rate change: no Slow fractionated injection: yes Additional Notes Patient tolerated well.No pain on injection or throughout procedure. Procedure Note Jeison Vásquez MD - 11/08/2017 11:19 AM SENIOR DRAFTER Peripheral Block Patient location during procedure: pre-op Start time: 11/08/2017 10:36 AM End time: 11/08/2017 10:45 AM Reason for block: procedure for pain, at surgeon's request and post-op pain management Staffing Anesthesiologist: JEISON VÁSQUEZ Resident/BATCH TANK CONTROLLER: ARIEL FRANCIS Performed by: anesthesiologist and resident/BATCH TANK CONTROLLER Preanesthetic Checklist Completed: patient identified, site marked, surgical consent, pre-op evaluation , timeout performed, IV checked, risks and benefits discussed and monitors and equipment checked Peripheral Block Patient position: supine Prep: ChloraPrep Patient monitoring: heart rate, cardiac cath lab manager and continuous pulse ox Block type: Adductor canal Laterality: left Injection technique: catheter Procedures: ultrasound guided and landmark technique Local infiltration: ropivicaine Infiltration strength: 0.5 % Dose: 25 mL Needle Needle type: Tuohy Needle gauge: 17 G Needle length: 100 mm Catheter type: open end Catheter size: 19 G Test dose: negative Assessment Injection assessment: negative aspiration for heme, no paresthesia on injection , incremental injection and local visualized surrounding nerve on ultrasound Paresthesia pain: none Heart rate change: no Slow fractionated injection: yes Additional Notes Patient tolerated well. No pain on injection or throughout procedure. * ANESTHESIA SPINAL BLOCK (11/08/2017 11:22 AM) Narrative Jeison Vásquez MD 11/08/2017 11:22 AM Spinal Block Patient location during procedure: pre-op Start time: 11/08/2017 10:22 AM End time: 11/08/2017 10:34 AM Reason for block: procedure for pain, at surgeon's request and post-op pain management Staffing Anesthesiologist: JEISON VÁSQUEZ Resident/BATCH TANK CONTROLLER: ARIEL FRANCIS Performed by: anesthesiologist Preanesthetic Checklist Completed: patient identified, site marked, surgical consent, pre-op evaluation, timeout performed, IV checked, risks and benefits discussed and monitors and equipment checked Spinal Block Patient position: sitting Prep: Betadine Patient monitoring: heart rate, cardiac cath lab manager and continuous pulse ox Approach: midline Location: L2-3 Injection technique: single-shot Needle Needle type: whitiacre Needle gauge: 25 G Needle length: 10 cm Additional Notes Patient consented, timeout performed, patient positioned and prepped. CSF visualized, Patient tolerated well.No pain on injection or throughout procedure. Procedure Note Jeison Vásquez MD - 11/08/2017 11:16 AM SENIOR DRAFTER Spinal Block Patient location during procedure: pre-op Start time: 11/08/2017 10:22 AM End time: 11/08/2017 10:34 AM Reason for block: procedure for pain, at surgeon's request and post-op pain management Staffing Anesthesiologist: JEISON VÁSQUEZ Resident/BATCH TANK CONTROLLER: ARIEL FRANCIS Performed by: anesthesiologist Preanesthetic Checklist Completed: patient identified, site marked, surgical consent, pre-op evaluation , timeout performed, IV checked, risks and benefits discussed and monitors and equipment checked Spinal Block Patient position: sitting Prep: Betadine Patient monitoring: heart rate, cardiac cath lab manager and continuous pulse ox Approach: midline Location: L2-3 Injection technique: single-shot Needle Needle type: whitiacre Needle gauge: 25 G Needle length: 10 cm Additional Notes Patient consented, timeout performed, patient positioned and prepped. CSF visualized, Patient tolerated well. No pain on injection or throughout procedure. * TRANSFUSION SERVICE REPORT - SCAN (11/01/2017 5:43 PM) * Type and screen, automated (10/31/2017 9:38 AM) Component Value Ref Range ABO/RH AUTOMATED (BEAKER) B POSITIVE Ab Scrn NEGATIVE Specimen Performing Laboratory Blood [facility] [address] [address] after 02/13/2017
--- OUTSIDE RECORDS SUMMARY | 2018-02-14 16:59 | XMS REPORT ---
Author Author [facility] Address Unknown Phone Unavailable Care Team Providers Care Managed Care Coordinator Name Role Phone JANE PETERS Unavailable Unavailable ARNULFO HERR Unavailable Unavailable KAIA GARG Unavailable Unavailable Problems This patient has no known problems. Allergies, Adverse Reactions, Alerts This patient has no known allergies or adverse reactions. Medications This patient has no known medications. Results Test Description Test Time Test Comments Text Results Atomic Results Result Comments TISSUE EXAM 2017-11-14 17:16:00 Surgical Pathology Report Case: [id number] Authorizing Provider: Arnulfo Herr, Collected: 11/08/2017 1302 MD Ordering Location: [facility] PERIOPERATIVE Received: 11/08/2017 1358 SERVICES Pathologist: Ky Miranda MD Specimen: Condyle,Left Knee BONE, LEFT KNEE, ARTHROPLASTY: -OSTEOARTHRITIS AND CHRONIC SYNOVITIS Signing Pathologist Direct Phone Line: [phone] knee arthritisLeft knee condyleThe specimen is received in a fluidless container [...] tissue and bone submitted for decalcification. CG/pl The sections show reduplication of the tidemark with eburnation and osteophyte formation.The synovial tissue reveals subsynovial edema with chronic inflammation. RAD, CHEST, 1 VIEW, NON DEPT 2017-11-10 11:17:00 Reason for exam:->sob, wheezingShould this be performed at the bedside?->Yes FINAL REPORT Chest one view Discussion: Patchy opacities right lower lung and left lung base are noted. Left hemidiaphragm is partially obscured. No gross effusion or pneumothorax. Heart size normal. IMPRESSIONS: Nonspecific bilateral lower lung opacities. Correlate clinically for infection. Signed: Ale Burns Verified Date/Time: 11/10/2017 11:17:44 Reading Location: [facility] Radiology Reading Room C METABOLIC PANEL 2017-11-10 05:52:00 SODIUM (BEAKER) (test ftmy=167) 135 meq/L 136-145 POTASSIUM (BEAKER) (test zodq=757) 3.4 meq/L 3.5-5.1 CHLORIDE (BEAKER) (test awvu=608) 105 meq/L 98-107 CO2 (BEAKER) (test bnhn=818) 24 meq/L 22-29 BLOOD UREA NITROGEN (BEAKER) (test phnl=865) 19 mg/dL 7-21 CREATININE (BEAKER) (test msiu=563) 0.76 mg/dL 0.57-1.25 GLUCOSE RANDOM (BEAKER) (test jelj=199) 130 mg/dL 70-105 CALCIUM (BEAKER) (test osgv=744) 7.7 mg/dL 8.4-10.2 EGFR (BEAKER) (test rezp=2677) 74 mL/min/1.73 sq m ESTIMATED GFR IS NOT ACCURATE CREATININE CLEARANCE IN PREDICTING GLOMERULAR FILTRATION RATE. ESTIMATED GFR IS NOT APPLICABLE FOR DIALYSIS PATIENTS. HEMOGLOBIN AND [id number] 05:11:00* Test Item Value Reference Range Comments HEMOGLOBIN (BEAKER) (test errj=734) 9.4 GM/DL 11.2-15.7 HEMATOCRIT (BEAKER) (test asyq=914) 29.9 % 34.1-44.9 BASIC METABOLIC [id number] 06:30:00* Test Item Value Reference Range Comments SODIUM (BEAKER) (test lxcf=111) 136 meq/L 136-145 POTASSIUM (BEAKER) (test wmqo=965) 3.7 meq/L 3.5-5.1 CHLORIDE (BEAKER) (test nnca=545) 104 meq/L 98-107 CO2 (BEAKER) (test aalz=542) 23 meq/L 22-29 BLOOD UREA NITROGEN (BEAKER) (test sxon=857) 21 mg/dL 7-21 CREATININE (BEAKER) (test jmtc=127) 0.80 mg/dL 0.57-1.25 GLUCOSE RANDOM (BEAKER) (test rnin=277) 212 mg/dL 70-105 CALCIUM (BEAKER) (test awfm=963) 7.9 mg/dL 8.4-10.2 EGFR (BEAKER) (test rvjy=5391) 69 mL/min/1.73 sq m ESTIMATED GFR IS NOT ACCURATE CREATININE CLEARANCE IN PREDICTING GLOMERULAR FILTRATION RATE. ESTIMATED GFR IS NOT APPLICABLE FOR DIALYSIS PATIENTS. HEMOGLOBIN AND [id number] 05:40:00* Test Item Value Reference Range Comments HEMOGLOBIN (BEAKER) (test exzd=216) 10.1 GM/DL 11.2-15.7 HEMATOCRIT (BEAKER) (test zloc=435) 31.4 % 34.1-44.9 MRI MRCP WO [place] [address] Patient Name: ORTIZ REEVES MR #: [id number] : 1940 Age/Sex: 77/F Req #: [id number] Adm Physician: JANE PETERS MD Ordered by: JANE PETERS MD Report #: [id number] Location: [facility] Room/Bed: [facility] _ Procedure: [id number] MRI/MRI MRCP WO Exam Date: 11/30/17 Exam Time: 1030 REPORT STATUS: Signed EXAMINATION: MRCP without contrast. TECHNIQUE: Axial T2 FR FSE, coronal SSFSE images of the abdomen were performed. No intravenous gadolinium was administered. Heavily T2-weighted MRCP images were performed, including thick and thin slab MRCP ASSETT, and 3-D reconstructions. HISTORY:Dilated CBD, hydropic gallbladder, suspect choledocholithiasis COMPARISON: CT abdomen and pelvis 09/29/2018 FINDINGS: LOWER THORAX: Bibasilar atelectatic changes.. LIVER: The hepatic contour is normal.. Scattered T2 hyperintense lesions consistent with previously visualized simple cysts, with the largest in the right hepatic lobe measuring approximately 1.5 x 1.5 cm (series 4, image 18). BILIARY: Moderate intrahepatic biliary ductal dilation, more prominent in the central aspect (for example series 3, 17). There is moderate to marked dilation of the common bile duct, which measures 1.5 cm at the yi hepatis and 9-10 mm at the pancreatic head. No filling defects or extrinsic compressions are identified. There is abrupt change in caliber in the ampullary portion of the distal CBD (for example series 6, images 5 and 4), which may reflect a small stricture. No focal mass is noted. .Gallbladder is hydropic. No wall thickening, filling defects or pericholecystic fluid.. PANCREAS: No mass or ductal dilatation. SPLEEN: No splenomegaly. ADRENALS: No nodules. KIDNEYS: No hydronephrosis or solid enhancing mass in the imaged portion of the kidneys. PERITONEUM / RETROPERITONEUM: No upper abdominal free fluid. GI TRACT: The visualized bowel shows no dilation or obstruction. LYMPH NODES: No upper abdominal lymphadenopathy. VESSELS: . Normal flow voids are identified.. . BONES AND SOFT TISSUES: No abnormal bone marrow signal. No soft tissue abnormalities. IMPRESSION: 1. Findings in the ampullary portion of the distal CBD may reflect a small stricture. No focal mass, cholelithiasis or choledocholithiasis is identified. ERCP is recommended for further evaluation. 2. Moderate intrahepatic biliary ductal dilatation, predominantly in the central aspect, with moderate to marked dilation of the common bile duct. Hydropic gallbladder. Signed by: Dr. Bird Ochoa M.D. on 11/30/2017 11:26 AM Dictated By: BIRD OCHOA MD 1126 Transcribed By: EMELY on 11/30/17 1126 COPY TO: JANE PETERS MD CT ABDOMEN [place] [address] Patient Name: ORTIZ REEVES #: [id number] : 1940 Age/Sex: 77/F Req #: [id number] [facility] Physician: JANE PETERS MD Ordered by: NICOLETTE KELLOGG MD Report #: [id number] Location: [facility] Room/Bed: [place] [address] Procedure: [id number] CT/CT ABDOMEN WOW Exam Date: 11/29/17 Exam Time: 1420 REPORT STATUS: Signed PROCEDURE: CT ABDOMEN WITH AND WITHOUT CONTRAST TECHNIQUE: The abdomen was scanned utilizing a multidetector helical scanner from the diaphragm to the iliac crest before and after the IV administration of 100 cc of Isovue 370 and the oral administration of water. Precontrast, arterial, venous and delayed phases were obtained as part of a pancreas mass protocol. Coronal and sagittal multiplanar reformations were obtained. COMPARISON: [facility], CT, CT CHEST W, 11/28/2017, 16:07. INDICATIONS: ABNORMAL CT RESULTS, dilated common bile duct, and gallbladder FINDINGS: LOWER THORAX: Bilateral lower lobe linear opacities, left greater than right, and associated mild bronchiectatic changes consistent with atelectasis/scarring HEPATOBILIARY: Mild hepatomegaly, measuring 16 cm in the right mid clavicular line. Normal contour. Several hypodense, nonenhancing, fluid density lesions consistent with simple cysts are noted in the liver, as follows: * 1.5 x 1.0 cm lesion in hepatic segment VIII at the dome (series 3, image 6). * 1.0 x 0.9 cm lesion in hepatic segment SARKIS (series 5, image 97 ). * 1.5 x 1.5 cm lesion in hepatic segment V/ (series 5, image 107). * Several other subcentimeter lesions are scattered throughout both hepatic lobes, which are too small to characterize, but likely represent small cysts. No suspicious enhancing lesions. Moderate intrahepatic biliary ductal dilation, and marked dilation of the common bile duct, which measures approximately 1.9 cm at the yi hepatis and 9 mm at the pancreatic head ( coronal venous images 36 and 34). There is smooth luminal contour, without mucosal irregularities. Normal tapering to the ampulla, without focal masses. No intraluminal radiopaque filling defects. Gallbladder is hydropic , measuring approximately 11.2 x 5.9 x 6.1 cm. No wall thickening. No intraluminal radiopaque stones or sludge. No pericholecystic fluid. SPLEEN : No splenomegaly. PANCREAS: Moderate pancreatic atrophy. No definite pancreatic head mass is identified. The pancreatic duct is normal in caliber , without dilation. ADRENALS: No adrenal nodules. KIDNEYS: No hydronephrosis, stones, or solid mass lesions. PERITONEUM / RETROPERITONEUM: No free air or fluid. LYMPH NODES: No lymphadenopathy. VESSELS: Celiac trunk , superior and inferior mesenteric, and bilateral renal arteries are patent. Portal, superior mesenteric, and splenic veins are patent. GI TRACT: Persistent moderate thickening of the stomach antrum (for example, coronal venous image 30, and sagittal venous image 68). Rest of the visualized bowel shows no wall thickening, dilation, or obstruction. No intraluminal masses. No pericolonic inflammatory changes. BONES AND SOFT TISSUES: No aggressive lytic or sclerotic lesion. Degenerative changes in the lower thoracic and lumbosacral spine.. IMPRESSION: 1. Moderate intrahepatic biliary ductal dilation and marked dilation of the common bile duct, with hydropic gallbladder. No radiopaque gallstones or common bile duct stones. No pancreatic head mass or ductal dilation is identified. No discrete ampullary lesion is noted. Recommend MRCP to exclude non-radiopaque choledocholith. A stricture at the ampullary portion of the CBD is less likely. 2. Persistent moderate thickening of the stomach antrum. This may reflect inflammatory or infectious antritis, however, underlying gastric neoplasm is a consideration. Direct visualization with endoscopy would be helpful for further evaluation. 3. Mild splenomegaly, with multiple simple hepatic cysts. Bird Ochoa M.D. Dictated by: Bird Ochoa M.D. on 11/29/2017 at 15:27 Electronically approved by: Bird Ochoa M.D. on 11/29/2017 at 15:27 Dictated By: BIRD OCHOA MD 152 Transcribed By: DORIAN on 11/29/171526 COPY TO: NICOLETTE KELLOGG MD Stress Test - Treadmill ONLY [place] [address] Patient Name : ORTIZ REEVES MR #: [id number] : 1940 Age/Sex: 77/F Adm Physician : JANE PETERS MD Admit Date : Location : MED/SURG2 Room/Bed : 213 __ REPORT: Cardiology Report DATE OF STUDY: November 29, 2017 LEXISCAN STRESS TEST DESCRIPTION OF PROCEDURE: After informed consent, patient was brought to the stress lab. She was given 10.6 mCi of technetium 99 Myoview intravenously, and myocardial perfusion SPECT images were obtained in the horizontal long-axis, short-axis and vertical long-axis views. Subsequently patient was given 0.4 mg Lexiscan over 10 seconds. Patient was given 32.6 mCi of technetium 99 Myoview, and myocardial perfusion SPECT images were obtained in the horizontal long-axis, short-axis and vertical long-axis views. Gating images were also obtained. The patient tolerated this procedure without any complications. REPORT: Baseline EKG shows sinus rhythm at 91 beats per minute, normal axis, normal intervals , nonspecific ST-T changes. PACs noted. PARAMETERS 1. Resting heart rate is 93 beats per minute. 2. Maximal heart rate is 112 beats per minute. 3. Resting blood pressure 123/54 mmHg. 4. Maximal blood pressure 130/ 56 mmHg. REASON FOR TERMINATION: Endpoint obtained. INTERPRETATION 1. Negative for chest pain. 2. Negative for arrhythmias. 3. Blood pressure response consistent with Lexiscan. 4. No significant ST-T changes seen during Lexiscan infusion compared to baseline. 5. Analysis of SPECT images reveals uniform radioisotope uptake in all segments of the myocardium without any significant perfusion defects. CONCLUSION 1. No evidence of significant ischemia or infarction on this study. 2. No wall motion abnormalities. 3. Overall ejection fraction is 83%. DD: 12:02 Job#: [id number] EV Signature Date Dictated By: CONSTANTINE MCDOWELL MD Transcribed By: SMEDS on 12/01/17 <Electronically signed by CONSTANTINE MCDOWELL MD><<Signature on File>>12/13/17 0957 COPY TO: CT CHEST W [place] [address] Patient Name: ORTIZ REEVES MR #: [id number] : 1940 Age/Sex: 77/F Req #: [id number] Adm Physician: Ordered by: MODESTA RUTLEDGE MD Report #: [id number] Location: ER Room/Bed: __ Procedure: [id number] CT/CT CHEST W Exam Date: 11/28/17 Exam Time: 1608 REPORT STATUS: Signed PROCEDURE: CT scan of the chest WITH intravenous contrast, using pulmonary angiogram protocol. TECHNIQUE: The chest was scanned utilizing a multidetector helical scanner from the lung apex through the level of the adrenal glands after the IV administration of 62cc of Isovue 370. Coronal and sagittal multiplanar reformations were obtained. Pulmonary angiogram protocol was performed. COMPARISON: None. INDICATIONS: SHORTNESS OF BREATH, CHEST TIGHTNESS. History of left TKA FINDINGS: Lines/tubes: None. Lungs and Airways: No pulmonary emboli. Bronchial wall thickening in both lower lobes. Platelet atelectasis in the left lower lobe. Dependent atelectasis in both lower lobes. Pleura: The pleural spaces are clear. Heart and mediastinum: The thyroid gland is normal. No significant mediastinal, hilar or axillary lymphadenopathy is seen. The heart and pericardium are within normal limits. Main pulmonary artery measures 2.6 cm. Ascending aorta measures 3.2 cm. Soft tissues: Normal. Abdomen: Gallbladder is distended measuring 5.3 x 8.9 cm. Common bile duct is distended up to 1.6 cm. Distal common bile duct is not included on this exam. Multiple hypodensities in the liver. 1.8 cm in segment 7/8 (series 2 image 84). Bones: The visualized bony thorax is within normal limits. IMPRESSION: 1. No pulmonary emboli. 2. Bilateral lobe bronchial wall thickening and atelectasis, left greater than right. This may represent superimposed infection, especially aspiration. 3. Gallbladder hydrops with distended common bile duct. Common bile duct stone or pancreatic head mass cannot be excluded. Recommend CT abdomen pelvis and/or MR abdomen without and with contrast pancreas mass protocol for further evaluation. Dictated by: Dax Dimas M.D. on 11/28/2017 at 16:56 Electronically approved by: Dax Dimas M.D. on 11/28/2017 at 16:56 Dictated By: DAX DIMAS MD 55 Transcribed By: DORIAN on 11/28/171655 COPY TO: MODESTA RUTLEDGE MD CHEST SINGLE (PORTABLE) [place] [address] Patient Name: ORTIZ REEVES MR #: [id number] : 1940 Age/Sex: 77/F Req #: [id number] Adm Physician: Ordered by: MODESTA RUTLEDGE MD Report #: [id number] Location: ER Room/Bed: Procedure: [id number] DX/CHEST SINGLE ( PORTABLE) Exam Date: 11/28/17 Exam Time: 1300 REPORT STATUS: Signed PROCEDURE: A single AP view of the chest. COMPARISON: Chest x-ray 09/15/2017. INDICATIONS: TIGHTNESS IN CHEST FINDINGS: Lines/tubes: None. Lungs: The lungs are well inflated. Left basilar atelectasis. Lungs are otherwise clear.. There is no evidence of pneumonia or pulmonary edema. Pleura: There is no pleural effusion or pneumothorax. Heart and mediastinum: The heart and the mediastinum are unremarkable. Bones: No acute bony abnormality. IMPRESSION: Left basilar atelectasis. Lungs are otherwise clear. Dictated by: Dax Dimas M.D. on 11/28/2017 at 17:29 Electronically approved by: Dax Dimas M.D. on 11/28/2017 at 17:29 Dictated By: DAX DIMAS MD 28 Transcribed By: DORIAN on 11/28/171728 COPY TO: MODESTA RUTLEDGE MD CHEST SINGLE (PORTABLE) [place] [address] Patient Name: ORTIZ REEVES MR #: [id number] : 1940 Age/Sex: 77/F Req #: [id number] Adm Physician: Ordered by: KAIA GARG MD Report #: [id number] Location: ER Room/Bed: Procedure: [id number] DX/ CHEST SINGLE (PORTABLE) Exam Date: 09/15/17 Exam Time: 1230 REPORT STATUS: Signed PROCEDURE: A single AP view of the chest. COMPARISON: Chest radiograph 11/13/2014. INDICATIONS: WEAKNESS SINCE MONDAY FINDINGS: Lines/tubes: None. Lungs: The lungs are well inflated and clear. There is no evidence of pneumonia or pulmonary edema. Pleura: There is no pleural effusion or pneumothorax. Heart and mediastinum: Aortic arch calcifications. The heart and the mediastinum are unremarkable. Bones: No acute bony abnormality. IMPRESSION: No acute cardiopulmonary disease. Dictated by: Abel Gay M.D. on 09/15/2017 at 13:11 Electronically approved by: Abel Gay M.D. on 09/15/2017 at 13:11 Dictated By: ABEL GAY MD 1311 Transcribed By : DORIAN on 09/15/17 1311 COPY TO: KAIA GARG MD
[2018-02-14] MEDS ORDERED: ASPIRIN 81 MG CHEW TAB PO ONE (17:00)
[2018-02-14 17:34] LABS: BASOPHILS % 0.4 % (0.0-1.0); EOSINOPHILS # (AUTO) 0.3 (0.0-0.4); EOSINOPHILS % 2.8 % (0.0-6.0); HEMATOCRIT 41.1 % (34.2-44.1); HEMOGLOBIN 13.2 g/dL (12.0-16.0); LYMPHOCYTES # (AUTO) 1.5 (1.0-3.2); LYMPHOCYTES % 16.4 % (18.0-39.1); MEAN CORPUSCULAR HEMOGLOBIN 28.6 pg (28-32); MEAN CORPUSCULAR HGB CONC 32.1 g/dL (31-35); MEAN CORPUSCULAR VOLUME 89.2 fL (81-99); MONOCYTES # (AUTO) 0.6 (0.2-0.8); MONOCYTES % 6.8 % (4.4-11.3); NEUTROPHILS # (AUTO) 6.9 (2.1-6.9); NEUTROPHILS % 73.3 % (38.7-80.0); PLATELET COUNT 276 x10e3/uL (140-360); RED BLOOD COUNT 4.61 x10e6/uL (3.6-5.1); RED CELL DISTRIBUTION WIDTH 14.4 % (11.7-14.4)
[2018-02-14 17:45] LABS: INR 0.95; PARTIAL THROMBOPLASTIN TIME 22.4 seconds (23.8-35.5); PROTHROMBIN TIME 11.9 seconds (11.9-14.5)
--- NOTE | 2018-02-14 17:52 | Diagnostic Imaging Report ---
PROCEDURE: A single AP view of the chest. COMPARISON: None. INDICATIONS: CHEST PAIN FINDINGS: Lines/tubes: None. Lungs: The lungs are well inflated. Persistent left basilar linear opacity may represent scarring or atelectasis. There is no evidence of pneumonia or pulmonary edema. Pleura: There is no pleural effusion or pneumothorax. Heart and mediastinum: Aortic arch calcifications. The heart and the mediastinum are otherwise unremarkable. Bones: No acute bony abnormality. IMPRESSION: No acute cardiopulmonary disease. Dictated by: Abel Nichols M.D. on 02/14/2018 at 17:53 Electronically approved by: Abel Nichols M.D. on 02/14/2018 at 17:53
[2018-02-14 17:54] LABS: ALANINE AMINOTRANSFERASE 83 IU/L (0-55); ALBUMIN 3.6 g/dL (3.5-5.0); ALBUMIN/GLOBULIN RATIO 0.8 (0.8-2.0); ALKALINE PHOSPHATASE 213 IU/L (40-150); ANION GAP 15.8 mmol/L (8-16); BLOOD UREA NITROGEN 27 mg/dL (7-26); BUN/CREATININE RATIO 29 (6-25); CALCIUM 9.5 mg/dL (8.4-10.2); CARBON DIOXIDE 30 mmol/L (22-29); CHLORIDE 98 mmol/L (98-107); CREATINE KINASE 45 IU/L (29-168); CREATININE, SERUM 0.93 mg/dL (0.57-1.11); EST GLOMERULAR FILTRATION RATE 58 ML/MIN (60-); GLUCOSE 110 mg/dL (74-118); POTASSIUM 3.8 mmol/L (3.5-5.1); SODIUM 140 mmol/L (136-145)
[2018-02-14] MEDS ORDERED: MAGNESIUM/ALUMINUM/SIMETHICONE 30 ML UDC PO ONE (18:00)
[2018-02-14] MEDS ORDERED: BELLADONNA ALK/PHENOBARBITAL 5 ML UDC PO ONE (18:00)
[2018-02-14] MEDS ORDERED: LIDOCAINE VISC 2% SOLN 15 ML UDC PO ONE (18:00)
[2018-02-14 18:14] LABS: THYROID STIMULATING HORMONE 1.394 uIU/mL (0.350-4.940)
--- NOTE | 2018-02-14 19:14 | Diagnostic Imaging Report ---
PROCEDURE:US GALLBLADDER COMPARISON:None. INDICATIONS:RUQ PAIN, EPIGASTRIC PAIN FINDINGS: LIVER: Size:17.5 cm in the right midclavicular line, enlarged Appearance:Increased echogenicity, smooth contour Mass:No focal solid masses. Right hepatic 1.4 x 0.9 x 1.4 cm cyst. GALLBLADDER: Stones/Sludge:Sludge noted. Appearance:No wall thickening 2.6 mm. Hydrops measuring 11.5 x 5.3 x 6.2 cm. Sonographic Smart's Sign:Positive BILE DUCTS: Intrahepatic Ducts:No dilation Extrahepatic Ducts:Common bile duct measures 1.1 cm, dilatated. PANCREAS: Visualized portions of the neck and proximal body are normal. RIGHT KIDNEY: Size:9.2 cm in length Echogenicity:Normal Collecting System:No hydronephrosis Stone:None Cyst/Mass:None VESSELS: Aorta:Visualized portions are normal. Inferior Vena Cava:Visualized portions are normal. Main Portal Vein:0.9 cm, normal size with hepatopetal flow. FREE FLUID: No ascites or pleural effusions. CONCLUSION: Gallbladder sludge and hydrops with positive sonographic Smart's sign which would suggest acute cholecystitis with associated CBD dilatation. However MRCP 11/30/2017 also showed gallbladder hydrops and CBD dilatation possibly related to a CBD stricture, and thus the findings are equivocal. Clinical correlation recommended and if indicated, consider HIDA scan for further evaluation. Dictated by: Abel Nichols M.D. on 02/14/2018 at 19:15 Electronically approved by: Abel Nichols M.D. on 02/14/2018 at 19:15
[2018-02-14 20:02] LABS: BILIRUBIN,URINE NEGATIVE (NEGATIVE); CLARITY,URINE CLEAR (CLEAR); COLOR,URINE YELLOW (YELLOW); KETONES,URINE NEGATIVE (NEGATIVE); LEUKOCYTE ESTERASE ,URINE NEGATIVE (NEGATIVE); NITRITE,URINE NEGATIVE (NEGATIVE); PROTEIN,URINE DIPSTICK NEGATIVE (NEGATIVE); RBC,URINE 0-5 /HPF (0-5); URINE UROBILINOGEN 0.2 mg/dL (0.2 - 1); WBC,URINE (MAN) 0-5 /HPF (0-5)
[2018-02-14 20:03] LABS: EPITHELIAL CELLS,URINE FEW /LPF; MUCUS,URINE FEW (RARE)
--- OUTSIDE RECORDS SUMMARY | 2018-02-14 20:39 | XMS REPORT | Clinical Summary ---
Author Author GIDEON Cinema OneSaint Alph[facility] CenterCapableBitsCarroll Regional Medical CenterTaquillaSaint [facility] Address Unknown Phone Unavailable Care Team Providers Care Exercise Instruct Name Role Phone PCP Unavailable Allergies Active [...] Date Type Specialty Care Team Description 11/08/2017 [facility] General Internal Medicine Vinayak Herr, - Encounter [...] Taken Blood Pressure 127/60 11/10/2017 1:00 PM AUTOMOBILE BODY REPAIR SUPERVISOR Pulse 85 11/10/2017 1:00 PM AUTOMOBILE BODY REPAIR SUPERVISOR Temperature 37.2 C (98.9 F) 11/10/2017 1:00 PM AUTOMOBILE BODY REPAIR SUPERVISOR Respiratory Rate 18 11/10/2017 1:00 PM AUTOMOBILE BODY REPAIR SUPERVISOR Oxygen Saturation 96% 11/10/2017 11:05 AM AUTOMOBILE BODY REPAIR SUPERVISOR Inhaled Oxygen - - Concentration Weight 82.4 kg (181 lb 9.5 oz) 11/08/2017 9:00 AM AUTOMOBILE BODY REPAIR SUPERVISOR Height 162.6 cm (5' 4.02") 11/08/2017 9:00 AM AUTOMOBILE BODY REPAIR SUPERVISOR Body Mass Index 31.15 11/08/2017 9:00 AM AUTOMOBILE BODY REPAIR SUPERVISOR Plan of Treatment Not on file Implants Implanted Type Area Carpenter Assistant Device Expiration Model / Identifier Date Serial / Lot Cement Bone Smplx Hv 6194-1-001 - Cement/Donald Left: Knee ROLANDA:ROLANDA 05/05/2019 6194-1-001 [id number] ler/Adhesi [employer]TH[employer] / Implanted: Qty: 2 on 11/08/2017 by ve / Vinayak Herr MD [id number] Peg Fem Distal Fixation 5575-X-000 Fracture/F Left: Knee ROLANDA: ROLANDA 05/02/2022 5575-X-000 - [id number] ixation SPINE / Implanted: Qty: 1 on 11/08/2017 by / Vinayak Herr MD [id number] Pattella Tri Symmetric 33x9mm Joints Left: Knee ROLANDA:ROLANDA 10/24 5550-L-339 5550-L-339 - [id number] ORTHOPAEDICS / Implanted: Qty: 1 on 11/08/2017 by / Vinayak Herr MD [id number] Comp Triathlon Ps Fem #4 X1 - Joints Left: Knee ROLANDA:ROLANDA 08/15 5515-F-401 [id number] ORTHOPAEDICS / Implanted: Qty: 1 on 11/08/2017 by / Vinayak Herr MD [id number] Baseplt Tri Ts 4 5521-B-400 - Joints Left: Knee ROLANDA:ROLANDA 06/14 5521-B-400 [id number] ORTHOPAEDICS / Implanted: Qty: 1 on 11/08/2017 by / Vinayak Herr MD [id number] Stem Cemented 34x60zr 5560-S-112 - Joints Left: Knee ROLANDA:ROLANDA 06/01/2022 5560-S-112 [id number] ORTHOPAEDICS / Implanted: Qty: 1 on 11/08/2017 by / Vinayak Herr MD [id number] Insrt Tibial #4 11mm 5537-G-411 - Joints Left: Knee ROLANDA:ROLANDA 06/21/2021 5537-G-411 [id number] ORTHOPAEDICS / Implanted: Qty: 1 on 11/08/2017 by / Vinayak Herr MD [id number] Procedures Procedure Name Priority Date/Time Associated Diagnosis Comments ARTHROPLASTY,KNEE 11/08/2017 Arthritis of left knee UNILATERAL 11:45 AM AUTOMOBILE BODY REPAIR SUPERVISOR Special Needs (SPINAL/EP IDURAL WITH ADDUCTOR CANAL [...] MD Report Verified Date/Time:11/10/2017 11:17:44 Reading Location: [facility] Radiology Reading Room Procedure Note Interface, External Ris In - 11/10/2017 11:20 AM AUTOMOBILE BODY REPAIR SUPERVISOR FINAL REPORT Chest one view Discussion: Patchy opacities right lower lung and left lung base are noted. Left hemidiaphragm is partially obscured. No gross effusion or pneumothorax. Heart size normal. IMPRESSIONS: Nonspecific bilateral lower lung opacities. Correlate clinically for infection. Signed: Ale Montoya MD Report Verified Date/Time: 11/10/2017 11:17:44 Reading Location: [facility] Radiology Reading Room * Hemoglobin and hematocrit (11/10/2017 4:50 AM) Only the most recent of 2 results within the time period is included. Component Value Ref Range Hemoglobin 9.4 (L) 11.2 - 15.7 GM/DL Hematocrit 29.9 (L) 34.1 - 44.9 % Specimen Performing Laboratory Blood - Arm, Right [facility] [address] [place] [address] * Basic Metabolic Panel (11/10/2017 4:50 AM) [...] PATIENTS. Specimen Performing Laboratory Blood - Arm, [address] [address] * Tissue Exam (11/08/2017 1:02 PM) Component Value Ref Range Case Report Surgical Pathology Report Case: [id number] Authorizing Provider: Vinayak Herr, Collected: 11/08/2017 1302 MD Ordering Location: [facility] PERIOPERATIVE Received: 11/08/2017 1358 SERVICES Pathologist: Ky Miranda MD Specimen: Condyle,Left Knee DIAGNOSIS BONE, LEFT KNEE, ARTHROPLASTY: -OSTEOARTHRITIS AND CHRONIC SYNOVITIS Signing Pathologist Direct Phone Line: [phone] CPT Code(s) 45024 71698 CLINICAL HISTORY Left knee arthritis SPECIMEN SOURCE [...] inflammation. Specimen Performing Laboratory Tissue - Condyle,Left [facility] [address] [place] [address] * ANESTHESIA PERIPHERAL BLOCK (11/08/2017 11:22 AM) Narrative Jeison Vásquez MD 11/08/2017 11:22 AM Peripheral Block Patient location during procedure: pre-op Start time: 11/08/2017 10:36 AM End time: 11/08/2017 10:45 AM Reason for block: procedure for pain, at surgeon's request and post-op pain management Staffing Anesthesiologist: JEISON VÁSQUEZ Resident/ADMINISTRATIVE LAW JUDGE: ARIEL FRANCIS Performed by: anesthesiologist and resident/ADMINISTRATIVE LAW JUDGE Preanesthetic Checklist Completed: patient identified, site marked, surgical consent, pre-op evaluation, timeout performed, IV checked, risks and benefits discussed and monitors and equipment checked Peripheral Block Patient position: supine Prep: ChloraPrep Patient monitoring: heart rate, monitoring and evaluation advisor and continuous pulse ox Block type: Adductor [...] Jeison Vásquez MD - 11/08/2017 11:19 AM AUTOMOBILE BODY REPAIR SUPERVISOR Peripheral Block Patient location during procedure: pre-op Start time: 11/08/2017 10:36 AM End time: 11/08/2017 10:45 AM Reason for block: procedure for pain, at surgeon's request and post-op pain management Staffing Anesthesiologist: JEISON VÁSQUEZ Resident/ADMINISTRATIVE LAW JUDGE: ARIEL FRANCIS Performed by: anesthesiologist and resident/ADMINISTRATIVE LAW JUDGE Preanesthetic Checklist Completed: patient identified, site marked, surgical consent, pre-op evaluation , timeout performed, IV checked, risks and benefits discussed and monitors and equipment checked Peripheral Block Patient position: supine Prep: ChloraPrep Patient monitoring: heart rate, monitoring and evaluation advisor and continuous pulse ox Block type: Adductor [...] post-op pain management Staffing Anesthesiologist: JEISON VÁSQUEZ Resident/ADMINISTRATIVE LAW JUDGE: ARIEL FRANCIS Performed by: anesthesiologist Preanesthetic Checklist Completed: patient identified, site marked, surgical consent, pre-op evaluation, timeout performed, IV checked, risks and benefits discussed and monitors and equipment checked Spinal Block Patient position: sitting Prep: Betadine Patient monitoring: heart rate, monitoring and evaluation advisor and continuous pulse ox Approach: midline Location: L2-3 Injection technique: single-shot Needle Needle type: whitiacre Needle gauge: 25 G Needle length: 10 cm Additional Notes Patient consented, timeout performed, patient positioned and prepped. CSF visualized, Patient tolerated well.No pain on injection or throughout procedure. Procedure Note Jeison Vásquez MD - 11/08/2017 11:16 AM AUTOMOBILE BODY REPAIR SUPERVISOR Spinal Block Patient location during procedure: pre-op Start time: 11/08/2017 10:22 AM End time: 11/08/2017 10:34 AM Reason for block: procedure for pain, at surgeon's request and post-op pain management Staffing Anesthesiologist: JEISON VÁSQUEZ Resident/ADMINISTRATIVE LAW JUDGE: ARIEL FRANCIS Performed by: anesthesiologist Preanesthetic Checklist Completed: patient identified, site marked, surgical consent, pre-op evaluation , timeout performed, IV checked, risks and benefits discussed and monitors and equipment checked Spinal Block Patient position: sitting Prep: Betadine Patient monitoring: heart rate, monitoring and evaluation advisor and continuous pulse ox Approach: midline Location: [...] Scrn NEGATIVE Specimen Performing Laboratory Blood [facility] [address] [address] after 02/13/2017
[2018-02-14] MEDS: ONDANSETRON HCL INJ 2 MG/ML VIAL IV PRN (21:00)
[2018-02-14] MEDS: MORPHINE SULFATE 2 MG/ML SYR IV PRN (21:00)
[2018-02-14] MEDS ORDERED: PIPER-TAZ 3.375 GM 3.375 GM/100 ML BAG IV SCH (22:00)
[2018-02-14] MEDS: PIPER-TAZ 3.375 GM 50 ML IV SCH (22:47)
[2018-02-14] MEDS: SODIUM CHLORIDE 0.9% 1000ML 1,000 ML IV SCH (23:32)
[2018-02-15] VITALS (8 sets, daily range): BP systolic 114–177; BP diastolic 53–78
[2018-02-15] MEDS: MORPHINE SULFATE 2 MG/ML SYR IV PRN ×2 (01:59→20:35)
[2018-02-15] MEDS: ONDANSETRON HCL INJ 2 MG/ML VIAL IV PRN ×3 (02:00→20:35)
[2018-02-15] MEDS: PIPER-TAZ 3.375 GM 50 ML IV SCH ×3 (06:07→21:58)
[2018-02-15 06:19] LABS: BASOPHILS % 0.2 % (0.0-1.0); EOSINOPHILS % 0.1 % (0.0-6.0); HEMATOCRIT 36.9 % (34.2-44.1); LYMPHOCYTES # (AUTO) 1.3 (1.0-3.2); LYMPHOCYTES % 10.2 % (18.0-39.1); MEAN CORPUSCULAR HEMOGLOBIN 28.6 pg (28-32); MEAN CORPUSCULAR HGB CONC 32.5 g/dL (31-35); MEAN CORPUSCULAR VOLUME 87.9 fL (81-99); MONOCYTES # (AUTO) 0.7 (0.2-0.8); MONOCYTES % 5.7 % (4.4-11.3); NEUTROPHILS # (AUTO) 10.5 (2.1-6.9); NEUTROPHILS % 83.3 % (38.7-80.0); PLATELET COUNT 280 x10e3/uL (140-360); RED CELL DISTRIBUTION WIDTH 14.4 % (11.7-14.4)
[2018-02-15 06:44] LABS: ALBUMIN 3.1 g/dL (3.5-5.0); ALBUMIN/GLOBULIN RATIO 0.9 (0.8-2.0); ANION GAP 15.6 mmol/L (8-16); CALCIUM 9.1 mg/dL (8.4-10.2); CREATININE, SERUM 0.99 mg/dL (0.57-1.11); POTASSIUM 3.6 mmol/L (3.5-5.1)
--- NOTE | 2018-02-15 07:43 | Consultation ---
DATE OF CONSULTATION: February 14, 2018 REQUESTING PHYSICIAN: Dr. Diego Pradhan HISTORY OF PRESENT ILLNESS: Patient is a 77-year-old female who presents with complaints of epigastric abdominal pain with back pain. Says she has not had similar pains in the past. She has associated nausea but no vomiting. She came to the emergency room where evaluation was done which revealed a distended gallbladder with sludge, also dilated common bile duct and mildly elevated bilirubin. Patient says her pain is less today. She had a previous MRCP done a few months ago which revealed bile duct stricture. Said she did not have any pain at that time. She has not had any further evaluation of the bile duct stricture. MRI at that time did not reveal a mass in the pancreas. Patient has not had any fever or weight loss. PAST MEDICAL HISTORY: Significant for previous left knee replacement surgery. She has a history of hypertension. MEDICATIONS AT HOME: Include Norvasc, Plavix, Zithromax, Pepcid, Advair, hydrochlorothiazide, montelukast, pain medication. ALLERGIES: SHE HAS ALLERGIES TO ASPIRIN AND TRAMADOL. FAMILY HISTORY: Noncontributory. SOCIAL HISTORY: The patient does not smoke cigarettes and does not drink alcohol. REVIEW OF SYSTEMS: As stated above. She has no chest pains. No shortness of breath and no weight loss. PHYSICAL EXAMINATION VITALS: Normal. GENERAL: The patient is awake and alert, in no distress. HEENT: No scleral icterus. NECK: No masses. LUNGS: Equal breath sounds are clear bilaterally. CARDIAC: Regular rate and rhythm. Normal S1, S2 without murmur, S3 or S4. There is no jugular venous distention. ABDOMEN: Soft. There is no tenderness. There is no mass. There is no organomegaly. There are no signs of peritonitis. EXTREMITIES: Warm. There is no edema. NEUROLOGIC: Grossly intact. LAB TESTS: White blood cell count was 12.6 this morning, 9.3 on admission. Hemoglobin and hematocrit are normal. Chemistries reveal elevated bilirubin at 2.9, also elevated AST, ALT, and alkaline phosphatase. Lipase was normal. ASSESSMENT: This is a 77-year-old female with abdominal pain and findings of possible bile duct stricture. PLAN: Consult with gastroenterology for possible ERCP, as previous MRCP revealed possible stricture. Also, do a CT of the abdomen with attention to the pancreas. There are no signs of peritonitis or sepsis at this time that would warrant immediate intervention. Thank you for asking see to see Ms. Rosas. Job#: [id number] MH
[2018-02-15] MEDS: SODIUM CHLORIDE 0.9% 1000ML 1,000 ML IV SCH ×2 (08:26→14:25)
--- NOTE | 2018-02-15 09:50 | History and Physical ---
PRIMARY CARE PROVIDER: Plus CHIEF COMPLAINT: Abdominal pain, cholecystitis with common bile duct obstruction. HISTORY: Patient is a 77-year-old female with a previous diagnosis of common bile duct obstruction and possible stricture and gallbladder problem. She was discharged from here on December 01, 2017. At that time, she had gallbladder hydrops with distended common bile duct with possible aspiration pneumonia. She had chest pain. She also had bronchopneumonia. The patient's workup was negative with a negative stress test. The patient is supposed to follow up with GI doctor, Dr. Delvin Romero at the time for followup on the gallbladder and the common bile duct obstruction for further followup. Apparently, she was able tolerate her diet and per surgery at that time that the patient would not require surgery since she was able to eat. The patient came back in this time with abdominal pain. Her liver enzymes are elevated at 781. AST and ALT are 651 and alkaline phosphatase is 407. The patient's imaging tests were done. A gallbladder ultrasound showed persistent gallbladder hydrops with associated common bile duct dilatation. The patient now had a CT scan of the abdomen and pelvis, pending result. 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 PAST SURGICAL HISTORY: Left knee prosthesis. SOCIAL HISTORY: The patient does not smoke or use alcohol. No regular drugs. ALLERGIES: ASPIRIN AND TRAMADOL. HOME MEDICATIONS: List is reviewed. REVIEW OF SYSTEMS: Abdominal pain, nausea and vomiting. PHYSICAL EXAMINATION VITAL SIGNS: Temperature is 98, blood pressure 121/53, pulse rate 88, respirations 18. GENERAL: The patient is not in acute distress. She is awake and in pain, however. HEENT: Normocephalic, atraumatic and anicteric. NECK: Supple grossly. PULMONARY: Diminished breath sounds without any wheeze. CARDIOVASCULAR: S1 and S2. Regular rate and rhythm. ABDOMEN: Soft. Tenderness to palpation with some guarding. EXTREMITIES: No cyanosis or edema. NEUROLOGICAL: No focal deficit. LABORATORY: Sodium is 140, potassium 3.6, chloride 101, bicarb 27, BUN 24, creatinine 0.9, glucose 129. WBC is 12.6, hemoglobin 12, hematocrit of 36.9, and platelets are 280,000. Ultrasound showed gallbladder hydrops. IMPRESSION 1. Gallbladder hydrops. 2. Acute cholecystitis on chronic cholecystitis. 3. Common bile duct stricture. PLAN: Surgical and GI consultation with Dr. Vinayak Smith and Dr. Delvin Romero. PPI and antibiotics. Pain control and IV fluids. Home medications. Hold off any antiplatelets. Will monitor the patient closely. Repeat liver enzymes and lab workup. The patient will need both GI and surgical intervention. Job#: [id number] RI
[2018-02-15] MEDS: PANTOPRAZOLE 40 MG 10ML VIAL IV SCH (09:52)
--- NOTE | 2018-02-15 10:56 | Consultation ---
DATE OF CONSULTATION: February 15, 2018 ADMITTING PHYSICIAN: Dr. Diego Pradhan REQUESTING PHYSICIAN: Dr. Diego Pradhan HPI: The patient is a 77-year-old female with past medical history of left knee replacement, hypertension, GERD, who presented to the emergency room with complaints of epigastric abdominal pain that radiates to the back along with chest pain. She also complains of nausea but has not had any events of vomiting. In the ER, she came with a positive Smart sign and imaging showing a distended gallbladder with sludge along with dilated common bile duct as well as mildly elevated bilirubin and elevated LFTs. Today she says she is not having much pain, and it is well controlled. She has had an MRCP in the past, and the MRCP had revealed a bile duct stricture. She denies any hematemesis, melena or hematochezia. She denies any dysphagia. She has not ever had an EGD or colonoscopy. PAST MEDICAL HISTORY: As above. MEDICATIONS AT HOME: She takes Plavix, Pepcid, Advair for asthma, hydrochlorothiazide, montelukast and pain medication. ALLERGIES: SHE HAS ALLERGIES TO TRAMADOL AND ASPIRIN. FAMILY HISTORY: Hypertension. SOCIAL HISTORY: The patient does not drink, does not smoke or engage in any other recreational drugs. REVIEW OF SYSTEMS: As above. PHYSICAL EXAMINATION VITALS: See chart. GENERAL: Alert, awake, in no distress. HEENT: Normal inspection. NECK: Nontender, supple. LUNGS: Clear bilaterally. No respiratory distress. CHEST: Nontender. ABDOMEN: Soft, nontender. Bowel sounds active. No organomegaly. EXTREMITIES: Normal range of motion. No edema, no clubbing, no cyanosis. NEUROLOGIC: Oriented times 3. No motor deficit. Reflexes normal. REVIEW OF LABS: White blood cell count is 12.6, hemoglobin and hematocrit normal. AST 781, ALT 651, lipase normal. ASSESSMENT 1. Cholecystitis with cholelithiasis, rule out choledocholithiasis. 2. Abdominal pain. 3. Nausea. 4. History of gastroesophageal reflux disease. PLAN: We have ordered a stat MRCP, and we will await results to decide if possible ERCP is needed. The patient will also need a lap spenser for which surgery is following. Thank you for consulting us. We will follow. DICTATED BY: Natividad Bartlett PA-C Job#: [id number] MH
[2018-02-15] MEDS: LEVALBUTEROL HCL SOLN NEBU 1.25 MG/3 ML NEB INH PRN ×2 (12:45→23:30)
[2018-02-15] MEDS: ACETAMINOPHEN 325 MG TAB PO PRN (13:00)
--- NOTE | 2018-02-15 13:04 | Diagnostic Imaging Report ---
PROCEDURE: MRCP WITHOUT CONTRAST TECHNIQUE: Multiplanar multisequence evaluation of the abdomen were acquired without contrast. Axial diffusion, dual echo, and T2 fat sat. Coronal SS FSE and fiesta. Thin and thick slab MRCP sequences. COMPARISON: Gallbladder ultrasound 02/14/2018. MRCP 11/30/2017. CT abdomen and pelvis 11/29/2017. INDICATIONS: Gallbladder hydrops. FINDINGS: LACK OF GADOLINIUM DECREASES SENSITIVITY FOR DETECTION OF INTRA-ABDOMINAL PATHOLOGY. LIVER: Loss of signal on out of phase imaging consistent with diffuse hepatic steatosis. - 1.3 cm mildly T2 hyperintense lesion in segment 8 of liver (series 9 image 8). Stable. This likely represents a minimally complex cyst. On previous CT there were no enhancement. Alternatively this could represent an atypical/hyalinizing hemangioma. - 0.7 cm T2 hyperintense cysts in segment 4A (series 9 image 11). - 2.1 cm simple T2 hyperintense cyst in segment 6 of liver (series 9 image 18). BILIARY: Stable mildly distended gallbladder, which is slightly improved compared to prior examination. Gallbladder measures 8.3 x 5.0 cm. No stones or sludge identified. No gallbladder wall thickening or pericholecystic fluid. Common bile duct measures 0.8 cm (previously 1.4 cm) with gradual tapering to the pancreatic head. There is also associated intrahepatic biliary dilatation. PANCREAS: No mass or ductal dilatation. Pancreatic atrophy. SPLEEN: No splenomegaly. ADRENALS: No nodules. KIDNEYS: No hydronephrosis or mass in the imaged portion of the kidneys. PERITONEUM / RETROPERITONEUM: No upper abdominal free fluid. LYMPH NODES: No upper abdominal lymphadenopathy. VESSELS: Unremarkable. BONES AND SOFT TISSUES: Unremarkable. IMPRESSION: Slight improvement in gallbladder hydrops as well as improvement in common bile duct dilatation measuring 0.8 cm (previously 1.4 cm). If there has been interval intervention, this may represent improvement secondary to sphincterotomy. If no intervention was performed, then this would suggest sphincter of Oddi dysfunction. Dictated by: Dax Blevins M.D. on 02/15/2018 at 13:04 Electronically approved by: Dax Blevins M.D. on 02/15/2018 at 13:05
--- NOTE | 2018-02-15 14:37 | Diagnostic Imaging Report ---
PROCEDURE: CT ABDOMEN WITH AND WITHOUT CONTRAST TECHNIQUE: The abdomen was scanned utilizing a multidetector helical scanner from the diaphragm to the iliac crest before and after the IV administration of 100 cc of Isovue 370 and the oral administration of water. Coronal and sagittal multiplanar reformations were obtained. Pancreas mass protocol. COMPARISON: CT abdomen pelvis 11/29/2017. INDICATIONS: PANCREATIC MASS PROTOCOL FINDINGS: LOWER THORAX: Residual atelectasis especially left lower lobe. HEPATOBILIARY: Mild hepatomegaly, measuring 16 cm in the right mid clavicular line. Normal contour. Several hypodense, nonenhancing, fluid density lesions consistent with simple cysts are noted in the liver, as follows: * 1.0 x 1.6 cm (previously 1.5 x 1.0 cm) lesion in hepatic segment VIII at the dome (series 3, image 77). * 0.9 x 0.8 cm (previously 1.0 x 0.9 cm) lesion in hepatic segment SARKIS (series 3, image 83). * 1.8 x 1.4 cm (previously 1.5 x 1.5 cm) lesion in hepatic segment V/ (series 3, image 95). * Several other subcentimeter lesions are scattered throughout both hepatic lobes, which are too small to characterize, but likely represent small cysts. No suspicious enhancing lesions. Improved mild intrahepatic biliary ductal dilation, and mild dilation of the common bile duct, which measures approximately 0.8 cm (previously 1.9 cm) at the yi hepatis and 0.66 (0.9 cm) at the pancreatic head. There is smooth luminal contour, without mucosal irregularities. Normal tapering to the ampulla, without focal masses. No intraluminal radiopaque filling defects. Gallbladder is mildly distended but no longer hydropic, measuring approximately 8.4 x 3.8 cm (previously 11.2 x 5.9 x 6.1 cm). No wall thickening. No intraluminal radiopaque stones or sludge. No pericholecystic fluid. SPLEEN: No splenomegaly. PANCREAS: Moderate pancreatic atrophy. No definite pancreatic head mass is identified. The pancreatic duct is normal in caliber, without dilation. ADRENALS: No adrenal nodules. KIDNEYS: No hydronephrosis, stones, or solid mass lesions. PERITONEUM / RETROPERITONEUM: No free air or fluid. LYMPH NODES: No lymphadenopathy. VESSELS: Celiac trunk, superior and inferior mesenteric, and bilateral renal arteries are patent. Portal, superior mesenteric, and splenic veins are patent. GI TRACT: The visualized bowel shows no wall thickening, dilation, or obstruction. No intraluminal masses. No pericolonic inflammatory changes. BONES AND SOFT TISSUES: No aggressive lytic or sclerotic lesion. Degenerative changes in the lower thoracic and lumbosacral spine. IMPRESSION: Improved intrahepatic and extra hepatic biliary dilatation and improved distended gallbladder. No gallstones or common bile duct stones. No pancreatic head mass. On prior examination these findings may have been related to recent passage of sludge or a sphincter of Oddi dysfunction. Dictated by: Dax Blevins M.D. on 02/15/2018 at 14:38 Electronically approved by: Dax Blevins M.D. on 02/15/2018 at 14:38
[2018-02-15] MEDS ORDERED: SODIUM CHLORIDE 0.9% 50ML 50 ML ONE (15:10)
[2018-02-15] MEDS ORDERED: IOPAMIDOL 370 MG/ML 200 ML INFUS..BTL INJ ONE (15:12)
[2018-02-15] MEDS: SALMETEROL/FLUTICASONE 100/50 INH SCH (19:09)
[2018-02-15] MEDS: MONTELUKAST SODIUM 10 MG TAB PO SCH (21:00)
[2018-02-15] MEDS: OXYCODONE/ACETAMINOPHEN 5-325 1 EACH TABLET PO PRN (21:58)
[2018-02-16 00:36] VITALS: BP 114/52
[2018-02-16] MEDS: MORPHINE SULFATE 2 MG/ML SYR IV PRN ×2 (04:25→23:18)
[2018-02-16] MEDS: PIPER-TAZ 3.375 GM 50 ML IV SCH ×3 (05:25→22:05)
[2018-02-16 06:06] LABS: BASOPHILS % 0.2 % (0.0-1.0); EOSINOPHILS % 0.1 % (0.0-6.0); HEMATOCRIT 32.5 % (34.2-44.1); HEMOGLOBIN 10.7 g/dL (12.0-16.0); LYMPHOCYTES # (AUTO) 0.4 (1.0-3.2); MEAN CORPUSCULAR HEMOGLOBIN 29.1 pg (28-32); MEAN CORPUSCULAR HGB CONC 32.9 g/dL (31-35); MEAN CORPUSCULAR VOLUME 88.3 fL (81-99); MONOCYTES # (AUTO) 0.4 (0.2-0.8); MONOCYTES % 4.2 % (4.4-11.3); NEUTROPHILS # (AUTO) 9.5 (2.1-6.9); NEUTROPHILS % 91.1 % (38.7-80.0); PLATELET COUNT 169 x10e3/uL (140-360); RED BLOOD COUNT 3.68 x10e6/uL (3.6-5.1); RED CELL DISTRIBUTION WIDTH 14.4 % (11.7-14.4)
[2018-02-16 06:09] VITALS: BP 126/52
[2018-02-16 06:18] LABS: INR 1.15; PROTHROMBIN TIME 13.8 seconds (11.9-14.5)
[2018-02-16] MEDS: ACETAMINOPHEN 325 MG TAB PO PRN (06:22)
[2018-02-16 06:25] LABS: ALANINE AMINOTRANSFERASE 362 IU/L (0-55); ALBUMIN 2.6 g/dL (3.5-5.0); ALBUMIN/GLOBULIN RATIO 0.9 (0.8-2.0); ALKALINE PHOSPHATASE 307 IU/L (40-150); ANION GAP 13.4 mmol/L (8-16); BLOOD UREA NITROGEN 18 mg/dL (7-26); BUN/CREATININE RATIO 20 (6-25); CALCIUM 8.2 mg/dL (8.4-10.2); CARBON DIOXIDE 26 mmol/L (22-29); CHLORIDE 100 mmol/L (98-107); EST GLOMERULAR FILTRATION RATE > 60 ML/MIN (60-); GLUCOSE 100 mg/dL (74-118); SODIUM 137 mmol/L (136-145)
[2018-02-16 06:46] LABS: POTASSIUM 2.4 mmol/L (3.5-5.1)
[2018-02-16] MEDS: SALMETEROL/FLUTICASONE 100/50 INH SCH ×2 (07:25→19:30)
[2018-02-16] MEDS ORDERED: POTASSIUM CHLORIDE 20 MEQ TAB CR PO NR ×2 (07:30→08:30)
[2018-02-16] MEDS: PANTOPRAZOLE 40 MG 10ML VIAL IV SCH (08:54)
[2018-02-16] MEDS: SODIUM CHLORIDE 0.9% 1000ML 1,000 ML IV SCH ×2 (09:26→22:05)
[2018-02-16 09:41] VITALS: BP 102/51
[2018-02-16] MEDS ORDERED: IOPAMIDOL 300MG/ML 50ML INFUS..BTL IV ONE (14:09)
[2018-02-16 15:01] VITALS: BP 111/63
[2018-02-16] MEDS ORDERED: MAGNESIUM SULFATE 2GM/50ML 50 ML IV ONE (17:45)
[2018-02-16] MEDS ORDERED: ROCURONIUM BROMIDE 10 MG/ML 5ML VIAL ONE (17:51)
[2018-02-16] MEDS ORDERED: SEVOFLURANE INHAL SOLN 250 ML PEN BTL ONE (17:51)
[2018-02-16] MEDS ORDERED: PROPOFOL IV EMULSION 10 MG/ML 20 ML VIAL ONE (17:51)
[2018-02-16] MEDS ORDERED: SUCCINYLCHOLINE 200 MG/10 ML SYR ONE (17:51)
[2018-02-16] MEDS ORDERED: LIDOCAINE HCL 2% LOCAL INJ 5 ML SDV VIAL INJ ONE (17:51)
[2018-02-16] MEDS ORDERED: ONDANSETRON HCL INJ 2 MG/ML VIAL ONE (17:51)
[2018-02-16] MEDS ORDERED: DEXAMETHASONE SOD PHOS INJ 4 MG/ML VIAL ONE (17:51)
--- NOTE | 2018-02-16 18:56 | Diagnostic Imaging Report ---
PROCEDURE:ERCP TO BE READ INDICATION:Cholecystitis. COMPARISON:None. FINDINGS: Intraoperative fluoroscopy provided during endoscopic retrograde cholangiopancreatography. Radiologist was not present during exam. Fluoroscopy time: 1 min, 8 sec Cumulative area dose product: 780.86 uGycm2 Cumulative air Kerma : 47.95 mGy CONCLUSION: Common bile duct is distended and there appears to be filling defect within distal common bile duct, suspicious for choledocholithiasis. Please refer to the full discussion and impression from Gastroenterology division. Dictated by: Tom Adamson M.D. on 02/16/2018 at 18:56 Electronically approved by: Tom Adamson M.D. on 02/16/2018 at 18:56
[2018-02-16 19:38] VITALS: BP 100/64
[2018-02-16 20:00] VITALS: BP 112/53
[2018-02-16] MEDS: ONDANSETRON HCL INJ 2 MG/ML VIAL IV PRN (23:18)
[2018-02-16] MEDS: LEVALBUTEROL HCL SOLN NEBU 1.25 MG/3 ML NEB INH PRN (23:32)
[2018-02-17] VITALS (9 sets, daily range): BP systolic 106–146; BP diastolic 51–69
[2018-02-17] MEDS: PIPER-TAZ 3.375 GM 50 ML IV SCH ×3 (05:28→21:19)
[2018-02-17 06:40] LABS: BASOPHILS % 0.2 % (0.0-1.0); EOSINOPHILS % 0.1 % (0.0-6.0); HEMATOCRIT 30.7 % (34.2-44.1); HEMOGLOBIN 9.9 g/dL (12.0-16.0); LYMPHOCYTES # (AUTO) 1.1 (1.0-3.2); LYMPHOCYTES % 8.4 % (18.0-39.1); MEAN CORPUSCULAR HEMOGLOBIN 29.1 pg (28-32); MEAN CORPUSCULAR HGB CONC 32.2 g/dL (31-35); MEAN CORPUSCULAR VOLUME 90.3 fL (81-99); MONOCYTES # (AUTO) 0.6 (0.2-0.8); MONOCYTES % 4.7 % (4.4-11.3); NEUTROPHILS # (AUTO) 11.6 (2.1-6.9); NEUTROPHILS % 86.1 % (38.7-80.0); PLATELET COUNT 186 x10e3/uL (140-360); RED CELL DISTRIBUTION WIDTH 14.5 % (11.7-14.4)
[2018-02-17 07:11] LABS: ALANINE AMINOTRANSFERASE 246 IU/L (0-55); ALBUMIN 2.3 g/dL (3.5-5.0); ALKALINE PHOSPHATASE 248 IU/L (40-150); ANION GAP 10.7 mmol/L (8-16); BILIRUBIN,DIRECT 0.5 mg/dL (0.0-0.5); BLOOD UREA NITROGEN 20 mg/dL (7-26); BUN/CREATININE RATIO 24 (6-25); CALCIUM 8.1 mg/dL (8.4-10.2); CARBON DIOXIDE 26 mmol/L (22-29); CHLORIDE 103 mmol/L (98-107); CREATININE, SERUM 0.85 mg/dL (0.57-1.11); EST GLOMERULAR FILTRATION RATE > 60 ML/MIN (60-); GLUCOSE 183 mg/dL (74-118); LIPASE 101 U/L (8-78); MAGNESIUM 2.2 MG/DL (1.3-2.1); POTASSIUM 3.7 mmol/L (3.5-5.1); SODIUM 136 mmol/L (136-145)
[2018-02-17] MEDS: SALMETEROL/FLUTICASONE 100/50 INH SCH ×2 (07:35→19:25)
[2018-02-17] MEDS: PANTOPRAZOLE 40 MG 10ML VIAL IV SCH (08:10)
[2018-02-17] MEDS ORDERED: BUPIVACAINE HCL 0.5% INJ 30 ML VIAL INJ ONE (09:04)
[2018-02-17] MEDS: SODIUM CHLORIDE 0.9% 1000ML 1,000 ML IV SCH ×2 (10:26→22:47)
[2018-02-17] MEDS ORDERED: SODIUM CHLORIDE 0.9% 1000ML 1,000 ML IV SCH (10:50)
[2018-02-17] MEDS ORDERED: ONDANSETRON HCL INJ 2 MG/ML VIAL IV PRN (11:00)
[2018-02-17] MEDS ORDERED: MORPHINE SULFATE 2 MG/ML SYR IV PRN (11:00)
[2018-02-17] MEDS ORDERED: FENTANYL CITRATE/PF 100MCG/2 ML INJ ONE ×3 (11:20→18:03)
--- NOTE | 2018-02-17 11:31 | Operative Report ---
DATE OF PROCEDURE: February 17, 2018 PREOPERATIVE DIAGNOSIS: Acute cholecystitis. POSTOPERATIVE DIAGNOSIS: Acute cholecystitis. PROCEDURE PERFORMED: 1. Diagnostic laparoscopy. 2. Laparoscopic cholecystectomy. DECKER OPERATOR: None. ANESTHESIA: General. INDICATIONS AND FINDINGS: The patient is a 77-year-old female who was admitted to the hospital with complaints of epigastric abdominal pain, also abnormal liver function tests, dilated bile duct. Preop ERCP was negative for common bile duct stones. The gallbladder revealed sludge, and it was noted to be very distended. At surgery patient was found to have a gallbladder that was very distended, containing sludge and some tiny stones. The cystic duct was about 3 mm in diameter. Common bile duct was about 10 mm in diameter. Liver had some changes of fatty infiltration. There were adhesions in the periumbilical area involving omentum. TECHNIQUE: After adequate general endotracheal anesthesia, patient in supine position, the abdomen was prepped and draped in sterile fashion with De Beque solution. Skin just below the umbilicus was infiltrated with 0.5% Marcaine. Incision was made, abdominal wall elevated, and Veress needle was introduced. Pneumoperitoneum was then created. Ten millimeter trocar and cannula was passed through this wound. Laparoscopic camera was introduced. Initial laparoscopy revealed the gallbladder was very distended. Liver had changes of fatty infiltration. There were some adhesions in the periumbilical area involving omentum. Ten millimeter trocar and cannula was placed in the epigastrium, and two 5 millimeter trocars and cannulas were placed in the right upper quadrant. These were placed under direct vision. Fundus of the gallbladder was grasped, retracted superiorly. Neck of the gallbladder was grasped, retracted laterally. Peritoneum over the neck of the gallbladder was incised. The gallbladder/cystic duct junction was dissected free. Cystic artery was also dissected free. The neck of the gallbladder was completely dissected free. Cystic artery was divided between hemoclips close to the gallbladder. Cystic duct was milked back towards the gallbladder, then divided between hemoclips with 3 clips being left on the common bile duct side. There was a posterior branch of the cystic artery which was also divided between hemoclips. The gallbladder was dissected free from the liver using scissors and electrocautery. During the dissection, the gallbladder was opened and decompressed. It contained some sludge and some tiny stones. Once the gallbladder was completely free, it was placed into an Endopouch and brought out through the epigastric cannula. There was some bleeding from the gallbladder bed, which was controlled with electrocautery and then Surgicel gauze and hemostasis achieved. The peritoneal cavity was irrigated with saline once again. All fluid aspirated. Inspected for hemostasis, which was seen to be adequate. Instruments and cannulas were then removed. Pneumoperitoneum was evacuated. Wounds were then closed. Fascia in the umbilical and epigastrium wounds closed with 0 Vicryl. Skin to all wounds closed with hugo. Sterile dressing was applied to each wound. The patient tolerated the procedure well. Estimated blood loss was 100 mL. There were no complications. All counts were correct. Patient was taken to the recovery room in satisfactory condition. Job#: [id number] cc:GRZEGORZ BOND MD cc: KAT SERRANO MD
[2018-02-17] MEDS: MORPHINE SULFATE 2 MG/ML SYR IV PRN ×3 (13:25→23:20)
[2018-02-17] MEDS: ONDANSETRON HCL INJ 2 MG/ML VIAL IV PRN ×3 (13:25→23:20)
[2018-02-17] MEDS ORDERED: ONDANSETRON HCL INJ 2 MG/ML VIAL ONE (17:50)
[2018-02-17] MEDS ORDERED: ATROPINE SULFATE 1 MG/ML VIAL ONE (17:50)
[2018-02-17] MEDS ORDERED: SEVOFLURANE INHAL SOLN 250 ML PEN BTL ONE (17:50)
[2018-02-17] MEDS ORDERED: KETOROLAC TROMETHAMINE 30 MG/ML VIAL ONE (17:50)
[2018-02-17] MEDS ORDERED: ROCURONIUM BROMIDE 10 MG/ML 5ML VIAL ONE (17:50)
[2018-02-17] MEDS ORDERED: PROPOFOL IV EMULSION 10 MG/ML 20 ML VIAL ONE (17:50)
[2018-02-17] MEDS ORDERED: DEXAMETHASONE SOD PHOS INJ 4 MG/ML VIAL ONE (17:50)
[2018-02-17] MEDS ORDERED: LIDOCAINE HCL 2% LOCAL INJ 5 ML SDV VIAL INJ ONE (17:50)
[2018-02-17] MEDS ORDERED: NEOSTIGMINE 5 MG/5ML SYR ONE (17:50)
[2018-02-17] MEDS ORDERED: MIDAZOLAM HCL 2 MG/2 ML VIAL ONE ×2 (18:03)
[2018-02-17] MEDS: MONTELUKAST SODIUM 10 MG TAB PO SCH (21:19)
[2018-02-17] MEDS: LEVALBUTEROL HCL SOLN NEBU 1.25 MG/3 ML NEB INH PRN (23:15)
[2018-02-18] VITALS: BP 114/56
[2018-02-18] MEDS: ONDANSETRON HCL INJ 2 MG/ML VIAL IV PRN ×2 (03:52→09:05)
[2018-02-18] MEDS: MORPHINE SULFATE 2 MG/ML SYR IV PRN ×2 (03:52→09:05)
[2018-02-18 04:00] VITALS: BP 121/61
[2018-02-18] MEDS: PIPER-TAZ 3.375 GM 50 ML IV SCH ×2 (05:20→19:32)
[2018-02-18] MEDS: SALMETEROL/FLUTICASONE 100/50 INH SCH ×2 (07:05→20:00)
[2018-02-18 07:12] LABS: BASOPHILS % 0.2 % (0.0-1.0); EOSINOPHILS # (AUTO) 0.1 (0.0-0.4); EOSINOPHILS % 0.9 % (0.0-6.0); HEMATOCRIT 29.3 % (34.2-44.1); HEMOGLOBIN 9.3 g/dL (12.0-16.0); LYMPHOCYTES # (AUTO) 1.5 (1.0-3.2); LYMPHOCYTES % 12.4 % (18.0-39.1); MEAN CORPUSCULAR HEMOGLOBIN 28.8 pg (28-32); MEAN CORPUSCULAR HGB CONC 31.7 g/dL (31-35); MEAN CORPUSCULAR VOLUME 90.7 fL (81-99); MONOCYTES # (AUTO) 0.8 (0.2-0.8); MONOCYTES % 6.9 % (4.4-11.3); NEUTROPHILS # (AUTO) 9.4 (2.1-6.9); NEUTROPHILS % 79.2 % (38.7-80.0); PLATELET COUNT 205 x10e3/uL (140-360); RED BLOOD COUNT 3.23 x10e6/uL (3.6-5.1); RED CELL DISTRIBUTION WIDTH 14.6 % (11.7-14.4)
[2018-02-18 07:37] LABS: ALANINE AMINOTRANSFERASE 168 IU/L (0-55); ALBUMIN 2.3 g/dL (3.5-5.0); ALBUMIN/GLOBULIN RATIO 0.7 (0.8-2.0); ALKALINE PHOSPHATASE 193 IU/L (40-150); ANION GAP 10.4 mmol/L (8-16); BLOOD UREA NITROGEN 19 mg/dL (7-26); BUN/CREATININE RATIO 22 (6-25); CALCIUM 8.1 mg/dL (8.4-10.2); CARBON DIOXIDE 26 mmol/L (22-29); CHLORIDE 105 mmol/L (98-107); CREATININE, SERUM 0.85 mg/dL (0.57-1.11); EST GLOMERULAR FILTRATION RATE > 60 ML/MIN (60-); GLUCOSE 124 mg/dL (74-118); POTASSIUM 3.4 mmol/L (3.5-5.1); SODIUM 138 mmol/L (136-145)
[2018-02-18 07:43] VITALS: BP 121/66
[2018-02-18] MEDS ORDERED: POTASSIUM CHLORIDE 20 MEQ TAB CR PO STA (07:50)
[2018-02-18 09:05] VITALS: BP 121/66
[2018-02-18] MEDS: PANTOPRAZOLE 40 MG 10ML VIAL IV SCH (09:05)
[2018-02-18] MEDS: OXYCODONE/ACETAMINOPHEN 5-325 1 EACH TABLET PO PRN (14:00)
[2018-02-18] MEDS ORDERED: ONDANSETRON HCL 4 MG ORAL DISINTEGRATING TAB PO PRN (14:15)
[2018-02-18] MEDS: ALBUTEROL/IPRATROPIUM 3 ML NEB NEB SCH ×2 (16:05→19:18)
[2018-02-18] MEDS: SODIUM CHLORIDE 0.9% 1000ML 1,000 ML IV SCH (19:31)
[2018-02-18 20:00] VITALS: BP 145/72
[2018-02-18] MEDS: HYDROCODONE/APAP 5MG-325MG TAB PO PRN (20:30)
[2018-02-18] MEDS: MONTELUKAST SODIUM 10 MG TAB PO SCH (20:49)
[2018-02-18 21:10] VITALS: BP 145/72
[2018-02-19] VITALS: BP 125/61
[2018-02-19] MEDS: HYDROCODONE/APAP 5MG-325MG TAB PO PRN ×2 (02:31→06:45)
[2018-02-19 04:00] VITALS: BP 133/65
[2018-02-19] MEDS: SALMETEROL/FLUTICASONE 100/50 INH SCH (06:58)
[2018-02-19] MEDS: ALBUTEROL/IPRATROPIUM 3 ML NEB NEB SCH ×2 (06:58→10:47)
[2018-02-19 07:55] VITALS: BP 144/57
[2018-02-19] MEDS ORDERED: NORCO 5-325 TA1 EACH PO ×2 (10:56→10:57)
[2018-02-19 11:49] VITALS: BP 137/73
--- NOTE | 2018-02-19 13:09 | Discharge Summary ---
PRIMARY CARE DOCTOR: Dr. Aris Toure FINAL DIAGNOSIS: Acute cholecystitis. SECONDARY DIAGNOSIS 1. Common bile duct dilatation. 2. Asthma exacerbation. CONSULTANTS 1. Dr. Cantrell, surgeon. 2. Dr. Cadena, GI. PROCEDURES/STUDIES PERFORMED 1. Laparoscopic cholecystectomy. 2. ERCP. 3. MRCP. 4. Abdominal CT. 5. Gallbladder ultrasound. HISTORY: Per H\T\P. HOSPITAL COURSE: Patient was started on Zosyn. Her gallbladder ultrasound showed gallbladder sludge and hydrops. MRCP was done subsequently followed by ERCP. Afterwards laparoscopic cholecystectomy was done. Today is postop day #2. Patient is doing well, ready to go home. Patient is tolerating diet. As far as her asthma exacerbation, this is better after nebulizer treatment. Patient has her own nebs at home that she can do. I have updated her primary care doctor about this hospital visit. Patient was seen and examined today. It took 32 minutes total to discharge this patient today. CONDITION ON DISCHARGE: Stable. DISCHARGE MEDICATIONS: Please see medication reconciliation form. KAT SERRANO M.D. Job#: [id number] DG cc:ARIS TOURE MD
== END 2018-02-19 12:28 | disposition home or self-care (01) | DRG 417 ==
LOC: ER 16:57 → ERHOLD 19:56 → IMCU 23:45 → MED/SURG2 02-15 06:36
PROVIDERS: ADMIT Internal Medicine; ATTEND Internal Medicine
PROC: BF111ZZ Fluoroscopy of Biliary and Pancreatic Ducts using Low Osmolar Contrast (ICD-10-PCS; 2018-02-16)
PROC: 0F798ZZ Dilation of Common Bile Duct, Via Natural or Artificial Opening Endoscopic (ICD-10-PCS; 2018-02-16)
PROC: 0FT44ZZ Resection of Gallbladder, Percutaneous Endoscopic Approach (ICD-10-PCS; principal; 2018-02-17 09:30)
DX: K80.12 Calculus of gallbladder with acute and chronic cholecystitis without obstruction (principal); K83.1 Obstruction of bile duct; J45.901 Unspecified asthma with (acute) exacerbation; J44.9 Chronic obstructive pulmonary disease, unspecified; K82.1 Hydrops of gallbladder; E83.42 Hypomagnesemia; K21.9 Gastro-esophageal reflux disease without esophagitis; E87.6 Hypokalemia; I10 Essential (primary) hypertension
CPT/HCPCS: 36415; 71045; 74170; 74181; 74328; 76705; 80048; 80053; 80076; 81001; 82248; 82550; 82553; 83690; 83735; 83880; 84132; 84443; 84484; 85025; 85610; 85730; 88304; 93005; 94640; 96360; 99284; J0461; J1100; J1885; J2001; J2250; J2270; J2405; J2543; J7030; Q9967

== ENCOUNTER 2019-09-10 14:09 | Observation (INO) | payer MEDICARE, OTHER ==
[~2019-09-10] VITALS: Ht 162.6 cm; Wt 96.2 kg
[~2019-09-10 14:09] MED LIST changes: +NORCO 5-325 TA1 EACH PO
--- NOTE | 2019-09-10 16:18 | Diagnostic Imaging Report ---
EXAMINATION: CHEST SINGLE (PORTABLE) INDICATION: Shortness of breath COMPARISON: None FINDINGS: LINES/TUBES:None LUNGS:The lungs are moderately inflated. No focal consolidation or pulmonary edema. PLEURA:No pleural effusion or pneumothorax. MEDIASTINUM:The cardiomediastinal silhouette appears normal in size and shape. Atherosclerotic calcifications of the thoracic aorta. BONES/SOFT TISSUES:No acute osseous injury. ABDOMEN:No free air under the diaphragm. IMPRESSION: No focal pneumonia or pulmonary edema. Signed by: Nicki Barboza MD on 09/10/2019 4:15 PM
[2019-09-10] MEDS ORDERED: SODIUM CHLORIDE 0.9% 1000ML 500 ML IV STA (16:35)
[2019-09-10] MEDS ORDERED: SODIUM CHLORIDE 0.9% 1000ML 1,000 ML IV STA (16:35)
--- NOTE | 2019-09-10 16:46 | Diagnostic Imaging Report ---
Exam: Head CT without contrast History: Syncope Comparison studies: None Technique: Axial images were obtained from the skull base to the vertex. Coronal and sagittal images reconstructed from the axial data. Dose modulation, iterative reconstruction, and/or weight based adjustment of the mA/kV was utilized to reduce the radiation dose to as low as reasonably achievable. Radiation dose: Total DLP: 1040 mGy*cm. Estimated effective dose: DLP x 0.015 Intravenous contrast: None Findings: Scalp: No abnormalities. Bones: No fractures, blastic or lytic lesions. Brain sulci: Appropriate for age. Ventricles: Mild compensatory dilatation. No hydrocephalus. Extra-axial spaces: No masses, no fluid collection. Parenchyma: No mass, acute hemorrhage or acute or chronic cortical insults. A few scattered hypodensities in the supratentorial white matter are nonspecific but most compatible with chronic small vessel ischemic changes. Sellar/suprasellar region: No abnormalities. Craniocervical junction: Patent foramen magnum. No Chiari one malformation. Paranasal sinuses: Changes of prior sinonasal surgery. Chronic periosteal thickening present throughout the included paranasal sinuses as sequela chronic inflammation. Scattered nonspecific mucosal thickening with secretions present in the left sphenoid sinus. Nonaggressive-appearing sinonasal polypoid lesion centered within the nasal cavity extends superiorly into the right ethmoid cavity where it abuts the cribriform plate and inferiorly along the nasal septum where protrudes into the right maxillary sinus. Small polypoid lesions also present along the left nasal septum. Sinonasal polypoid lesions could be further evaluated by direct visualization to ensure these are simple polyps, if not recently performed. Incidental findings: Atherosclerotic calcifications in the carotid siphons. Heterotopic ossification along the basion-dental interval, alar ligaments and around the anterior C1 arch. IMPRESSION: 1. No acute intracranial abnormalities. 2. Mild generalized parenchymal volume loss. 3. Moderate chronic microvascular ischemic changes. 4. 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 Signed by: Dr. Vinayak Ruelas M.D. on 09/10/2019 4:43 PM
[2019-09-10 17:19] LABS: BASOPHILS # (AUTO) 0.1 (0.0-0.1); BASOPHILS % 0.5 % (0.0-1.0); EOSINOPHILS # (AUTO) 0.3 (0.0-0.4); EOSINOPHILS % 2.7 % (0.0-6.0); HEMATOCRIT 41.6 % (34.2-44.1); HEMOGLOBIN 13.4 g/dL (12.0-16.0); LYMPHOCYTES # (AUTO) 1.8 (1.0-3.2); MEAN CORPUSCULAR HGB CONC 32.2 g/dL (31-35); MEAN CORPUSCULAR VOLUME 93.3 fL (81-99); MONOCYTES # (AUTO) 0.7 (0.2-0.8); MONOCYTES % 7.9 % (4.4-11.3); NEUTROPHILS # (AUTO) 6.4 (2.1-6.9); NEUTROPHILS % 69.6 % (38.7-80.0); PLATELET COUNT 301 x10e3/uL (140-360); RED BLOOD COUNT 4.46 x10e6/uL (3.6-5.1)
[2019-09-10 17:27] LABS: INR 0.81; PROTHROMBIN TIME 11.6 seconds (11.9-14.5)
[2019-09-10 17:28] LABS: PARTIAL THROMBOPLASTIN TIME 25.7 seconds (23.8-35.5)
[2019-09-10 17:37] LABS: ALANINE AMINOTRANSFERASE 14 IU/L (0-55); ALBUMIN 3.8 g/dL (3.5-5.0); ALBUMIN/GLOBULIN RATIO 1.1 (0.8-2.0); ALKALINE PHOSPHATASE 113 IU/L (40-150); ANION GAP 14.9 mmol/L (8-16); BLOOD UREA NITROGEN 18 mg/dL (7-26); BUN/CREATININE RATIO 21 (6-25); CALCIUM 9.3 mg/dL (8.4-10.2); CARBON DIOXIDE 27 mmol/L (22-29); CHLORIDE 98 mmol/L (98-107); CREATINE KINASE 106 IU/L (29-168); CREATININE, SERUM 0.84 mg/dL (0.57-1.11); EST GLOMERULAR FILTRATION RATE > 60 ML/MIN (60-); GLUCOSE 101 mg/dL (74-118); POTASSIUM 3.9 mmol/L (3.5-5.1); SODIUM 136 mmol/L (136-145)
[2019-09-10 18:15] LABS: BILIRUBIN,URINE NEGATIVE (NEGATIVE); CLARITY,URINE CLEAR (CLEAR); COLOR,URINE YELLOW (YELLOW); KETONES,URINE NEGATIVE (NEGATIVE); LEUKOCYTE ESTERASE ,URINE SMALL (NEGATIVE); NITRITE,URINE NEGATIVE (NEGATIVE); PROTEIN,URINE DIPSTICK NEGATIVE (NEGATIVE); URINE UROBILINOGEN 0.2 mg/dL (0.2 - 1)
[2019-09-10] MEDS ORDERED: ONDANSETRON HCL INJ 2MG/ML 2ML 2 MG/ML VIAL IV PRN (18:15)
[2019-09-10 18:27] LABS: BACTERIA,URINE FEW /HPF; EPITHELIAL CELLS,URINE FEW /LPF; WBC,URINE (MAN) 0-5 /HPF (0-5)
[2019-09-10] MEDS ORDERED: SALMETEROL/FLUTICASONE 100/50 INH SCH (18:45)
[2019-09-10] MEDS ORDERED: HYDROCODONE/APAP 5MG-325MG TAB PO PRN (18:45)
[2019-09-10] MEDS: SALMETEROL/FLUTICASONE 250/50 INH SCH (20:15)
[2019-09-10 20:59] VITALS: BP 149/67
[2019-09-10] MEDS: CLOPIDOGREL BISULFATE 75 MG TAB PO SCH (21:00)
[2019-09-10] MEDS: MONTELUKAST SODIUM 10 MG TAB PO SCH (21:00)
[2019-09-11] VITALS (8 sets, daily range): BP systolic 115–164; BP diastolic 55–71
[2019-09-11 01:32] LABS: CREATINE KINASE 64 IU/L (29-168)
--- NOTE | 2019-09-11 04:35 | Diagnostic Imaging Report ---
EXAMINATION: CHEST SINGLE (PORTABLE) INDICATION: Syncope. COMPARISON: Chest radiograph 09/10/2019. FINDINGS: TUBES and LINES: None. LUNGS: Lungs are well inflated. Lungs are clear. There is no evidence of pneumonia or pulmonary edema. PLEURA: No pleural effusion or pneumothorax. HEART AND MEDIASTINUM: The cardiomediastinal silhouette is unremarkable. There are atherosclerotic calcifications within the aorta. BONES AND SOFT TISSUES: No acute osseous abnormality. UPPER ABDOMEN: No free air under the diaphragm. IMPRESSION: No acute radiographic abnormality. Signed by: Dr. Romi Wren MD on 09/11/2019 4:31 AM
[2019-09-11 05:26] LABS: BASOPHILS # (AUTO) 0.1 (0.0-0.1); BASOPHILS % 0.7 % (0.0-1.0); EOSINOPHILS # (AUTO) 0.5 (0.0-0.4); EOSINOPHILS % 6.5 % (0.0-6.0); HEMATOCRIT 36.9 % (34.2-44.1); HEMOGLOBIN 12.2 g/dL (12.0-16.0); LYMPHOCYTES # (AUTO) 1.8 (1.0-3.2); LYMPHOCYTES % 25.3 % (18.0-39.1); MEAN CORPUSCULAR HEMOGLOBIN 30.3 pg (28-32); MEAN CORPUSCULAR HGB CONC 33.1 g/dL (31-35); MEAN CORPUSCULAR VOLUME 91.8 fL (81-99); MONOCYTES # (AUTO) 0.8 (0.2-0.8); MONOCYTES % 10.9 % (4.4-11.3); NEUTROPHILS # (AUTO) 3.9 (2.1-6.9); NEUTROPHILS % 56.3 % (38.7-80.0); PLATELET COUNT 249 x10e3/uL (140-360); RED BLOOD COUNT 4.02 x10e6/uL (3.6-5.1); RED CELL DISTRIBUTION WIDTH 13.1 % (11.7-14.4)
[2019-09-11 05:49] LABS: ANION GAP 12.3 mmol/L (8-16); BLOOD UREA NITROGEN 16 mg/dL (7-26); BUN/CREATININE RATIO 22 (6-25); CALCIUM 8.7 mg/dL (8.4-10.2); CARBON DIOXIDE 29 mmol/L (22-29); CHLORIDE 102 mmol/L (98-107); CREATININE, SERUM 0.74 mg/dL (0.57-1.11); EST GLOMERULAR FILTRATION RATE > 60 ML/MIN (60-); GLUCOSE 94 mg/dL (74-118); POTASSIUM 3.3 mmol/L (3.5-5.1); SODIUM 140 mmol/L (136-145)
[2019-09-11] MEDS: AREDS PO SCH ×2 (08:00→17:00)
[2019-09-11] MEDS: SALMETEROL/FLUTICASONE 250/50 INH SCH (08:00)
[2019-09-11] MEDS ORDERED: POTASSIUM CHLORIDE 10MEQ EA PO ONE (08:55)
[2019-09-11] MEDS ORDERED: AMLODIPINE BESYLATE 10 MG TAB PO SCH (09:00)
[2019-09-11] MEDS: VALSARTAN 80 MG TAB PO SCH (09:17)
[2019-09-11] MEDS ORDERED: AMLODIPINE BESYLATE 10 MG TAB PO ONE (09:30)
[2019-09-11 09:54] LABS: CREATINE KINASE 56 IU/L (29-168)
--- NOTE | 2019-09-11 11:28 | NUR ---
MD MAURICE ORDERED TO CANCEL CONSULT MD KELLOGG AWARE CONSULT CANCELLED
--- NOTE | 2019-09-11 11:45 | Diagnostic Imaging Report ---
Examination: MRI BRAIN WO CONTRAST History: Syncopal episode. TIA. Comparison studies: Head CT performed September 10, 2019 Technique: Sagittal T2; axial DWI, FLAIR, GRE or SWI, T1, Coronal FLAIR. Intravenous contrast: None Findings: Scalp: No abnormal signal. No masses. Bone marrow: Normal in signal intensity. Brain volume: Mild volume loss. Ventricles: No hydrocephalus. Extra-axial spaces: No abnormalities. Parenchyma: There are punctate and patchy areas of T2/FLAIR hyperintensity in the periventricular and subcortical and pontine white matter, nonspecific. No masses, hemorrhage, acute or chronic vascular insults. Suprasellar and sellar region: No abnormalities. Craniocervical junction: No abnormalities. The foramen magnum is patent. No Chiari malformations. Vessels: Normal flow-voids in the arteries and sinuses. Additional findings:Prior endoscopic sinus surgery with polypoid soft tissue in the right greater than left nasal cavities. Please refer to prior head CT report dated September 10, 2019 for detail. IMPRESSION: No acute intracranial abnormality. Mild volume loss for age and mild chronic microvascular ischemic change. Signed by: Dr. Matilda Souza M.D. on 09/11/2019 11:41 AM
--- NOTE | 2019-09-11 13:16 | History and Physical ---
CHIEF COMPLAINT: Syncopal episode while sitting. 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 The patient is on Plavix. She apparently was sitting at the kitchen table, writing a letter and apparently she fell, strained, and next thing she knows she woke up. She apparently had a syncopal episode. The episode was not witnessed and only account by the patient, for which she states she was a little confused. The patient is otherwise stable. She does not have any chest pain or shortness of breath. She is currently sitting up, eating breakfast and she is feeling better. Blood pressure is slightly elevated due to pending blood pressure medication given. PAST MEDICAL HISTORY: TIA, CVA with right eye blindness years ago. She walks with a cane. She has hypertension and prediabetes. PAST SURGICAL HISTORY: Left knee surgery. SOCIAL HISTORY: She does not smoke or use alcohol. She lives with her son and daughter. ALLERGIES: TO GABAPENTIN, TRAMADOL, AND ASPIRIN. HOME MEDICATIONS: List is reviewed. The patient is on Norvasc, Plavix, Advair, HCTZ, Fletcher, and Singulair. PHYSICAL EXAMINATION: VITAL SIGNS: Temperature is 98, blood pressure 164/71, pulse rate 75, and respirations 18. GENERAL: The patient is not in acute distress. She is awake. HEENT: Normocephalic and atraumatic. Pupils reactive. Anicteric. NECK: Supple grossly. PULMONARY: Clear. CARDIOVASCULAR: Regular rate and rhythm. ABDOMEN: Soft and unremarkable. EXTREMITIES: No cyanosis or edema. NEUROLOGIC: No gross focal deficit. Moving all extremities. LABORATORY DATA: Sodium 140, potassium 3.3, chloride 102, bicarb 29, BUN 16, creatinine 0.7, and glucose 94. WBC 6.9, hemoglobin 12, hematocrit 37, and platelets 249. Liver enzymes unremarkable. CT scan of the brain and chest x-ray, no acute finding. IMPRESSION: 1. Transient ischemic attack with syncopal episode. We will need to have further workup at this time. 2. Hypertensive urgency, most likely from medication not yet resumed. PLAN: Resume home medication. Replace electrolytes. Carotid Doppler, echocardiogram, and MRI of the brain. We will monitor the patient closely. If those tests are negative, the patient should be able to go home. Continue with home medication with some adjustment of her blood pressure medication. MD LISA Mcdaniels/JC /[id number]
--- NOTE | 2019-09-11 14:42 | NUR ---
LEFT KELLO[facility] A VOICEMAIL REGARDING RESULTS OF MRI/CAROTID/ECHO AWAITING FOR CALL BACK
[2019-09-11] MEDS: MONTELUKAST SODIUM 10 MG TAB PO SCH (20:13)
[2019-09-12 04:00] VITALS: BP 115/64
[2019-09-12] MEDS ORDERED: AMLODIPINE BESYLATE 10 MG TAB PO SCH (06:00)
[2019-09-12 07:13] LABS: CHOL/HDL RATIO 3.6 (3.0-3.6)
[2019-09-12 07:51] VITALS: BP 149/72
[2019-09-12] MEDS: AREDS PO SCH (07:59)
[2019-09-12] MEDS: CLOPIDOGREL BISULFATE 75 MG TAB PO SCH (07:59)
[2019-09-12] MEDS: VALSARTAN 80 MG TAB PO SCH (07:59)
[2019-09-12 08:00] VITALS: BP 149/72
[2019-09-12] MEDS: SALMETEROL/FLUTICASONE 250/50 INH SCH (08:15)
[2019-09-12] MEDS ORDERED: DIOVAN80 MG PO (09:13)
--- NOTE | 2019-09-12 09:38 | NUR ---
iv dc pressure dressing applied tele dc discharge instructions given and prescription pt verbalized understanding pt is now waiting for ride home
--- NOTE | 2019-09-12 11:38 | NUR ---
pt off unit to home at this time
--- NOTE | 2019-09-13 04:41 | Discharge Summary ---
PRIMARY CARE PHYSICIAN: Dr. Lew. FINAL DIAGNOSES: 1. Syncopal episode. The patient had negative MRI of the brain. Negative carotid Doppler without any significant stenosis. Echocardiogram showed ejection fraction of 60%. 2. Hypertensive urgency, systolic blood pressure in the 192. 3. Baseline hypertension. 4. History of transient ischemic attack. SUMMARY: The patient is an 79-year-old female, while sitting, writing a letter, had a brief syncopal episode. There was no sign of urinary incontinent. There was no tongue biting. There was no sign of seizure. The patient woke up completely coherent. She was not able to tell how long the duration, but she was stable. She came to the hospital for further evaluation. Neurology consultation was declined by Dr. Yary Jama. I did not think that the patient needs to see a neurologist at this time. However, the patient will follow up with a neurologist if needed as an outpatient and then discussed with the patient. With workup, the patient's blood pressure much improved with adjustment of medication. She is add on a Diovan 80 mg daily. Her potassium was slightly low and replaced. The patient is comfortable. She is stable. There are no other episodes. The EKG showed normal sinus rhythm. There was no significant ST-T wave changes. Cardiac enzyme was negative. Sodium 140, potassium 3.3, that was replaced, chloride 102, bicarb 29, BUN 16, creatinine 0.7, glucose 94. WBC 6.9, hemoglobin 12.2, hematocrit 37, and platelets 249. The patient is stable, comfortable. Blood pressure much improved. Urinalysis was negative. MRI of the brain was negative. CT scan of the brain was negative. B12 is 224, triglycerides 81, total cholesterol 180, LDL 114, HDL 50. Cardiac enzymes negative. The patient will go home today. Resume home medication. We will add on Diovan 80 mg once a day. The patient to follow up with the family physician for any adjustment of her medications. MD LISA Mcdaniels/YOLANDAL /[id number]
== END 2019-09-12 11:10 | disposition home or self-care (01) ==
LOC: ER 14:09 → ERHOLD 18:10 → MED/SURG 20:59
PROVIDERS: ADMIT Internal Medicine; ATTEND Internal Medicine
DX: I16.0 Hypertensive urgency (principal); Z86.73 Personal history of transient ischemic attack (TIA), and cerebral infarction without residual deficits; I69.398 Other sequelae of cerebral infarction; H54.61 Unqualified visual loss, right eye, normal vision left eye; E87.6 Hypokalemia
CPT/HCPCS: 36415 ×2; 70450; 70551; 71045 ×2; 80048; 80053; 80061; 81001; 82550 ×2; 82553 ×2; 82607; 83735; 83880; 84484 ×2; 85025 ×2; 85610; 85730; 87086; 93005; 93306; 93880; 94664 ×2; 99284; G0378 ×3; J7030